=== PATIENT | male | born 1980 | race Caucasian/White ===

== ENCOUNTER 2021-07-29 19:26 | Emergency (ER) | payer OTHER, SELFPAY ==
--- NOTE | ~2021-07-29 | XR_ITS ---
EXAMINATION: XR CHEST CLINICAL INFORMATION: Chest pain, shortness of breath. COMPARISON: None TECHNIQUE: Frontal view of the chest was obtained. FINDINGS: The lungs are clear. The cardiomediastinal silhouette is normal in size. There is no pleural effusion or pneumothorax. No acute osseous abnormality. XR/XR chest 1V IMPRESSION: No acute cardiopulmonary findings.
--- NOTE | ~2021-07-29 | CT_ITS ---
EXAMINATION: CT ANGIOGRAM OF THE CHEST WITH AND WITHOUT CONTRAST (CT PULMONARY ANGIOGRAM FOR PE) CLINICAL INFORMATION: Reason for Exam chest pain, dizziness COMPARISON: None TECHNIQUE: Prior to contrast administration, noncontrast localization images were obtained. Subsequently, multidetector volumetric imaging was performed from the thoracic inlet to below the diaphragms following the administration of 65 mL Omnipaque 350 intravenous contrast. No contrast reaction reported Sagittal, coronal, and MIP oblique sagittal reformatted images were obtained on the CT workstation, uploaded to PACS, and reviewed. This CT examination was performed using dose optimization techniques as appropriate, variously including the following: *Automated exposure control *Adjustment of mA and/or kV according to patient size (this includes techniques or standardized protocols for targeted exams where dose is matched to indication/reason for exam; i.e. extremities or head) *Use of iterative reconstruction technique Total exam dose-length product 415 mGy-cm FINDINGS: QUALITY OF STUDY/CONTRAST BOLUS: Satisfactory. PULMONARY ARTERIES: No central or segmental pulmonary emboli. THORACIC AORTA: No aneurysm or dissection. LUNG: No focal consolidation, nodules or masses. The central airways are patent. Minimal linear opacities at the left lung base favor atelectasis. PLEURA: No pleural effusion or pneumothorax. MEDIASTINUM: Normal heart size. No pericardial effusion. No hilar or mediastinal lymphadenopathy. No evidence of septal bowing or right heart strain. CHEST WALL/AXILLA: No axillary or internal mammary lymphadenopathy. OSSEOUS STRUCTURES: No acute or suspicious osseous abnormality. UPPER ABDOMEN: Low-attenuation of the liver suggestive of hepatic steatosis. No acute abnormality of the visualized upper abdomen. No reflux of contrast into the hepatic veins to suggest elevated right heart pressures. CT/CT angio chest PE protocol IMPRESSION: No pulmonary embolism or other acute intrathoracic abnormality. VTE: negative
--- NOTE | 2021-07-29 19:32 | ECG_ITS ---
Test Reason : CP/SOB Blood Pressure : / mmHG Vent. Rate : 113 BPM Atrial Rate : 113 BPM P-R Int : 126 ms QRS Dur : 078 ms QT Int : 330 ms P-R-T Axes : 035 064 033 degrees QTc Int : 452 ms Sinus tachycardia Otherwise normal ECG No previous ECGs available Referred By: Generic ED Physician Electronically Signed By:Israel Treviño
[2021-07-29 19:38] VITALS: BP 150/98; PULSE 110; RESP 16; TEMP 36.6; O2SAT 98; BMI 31.9
[2021-07-29 23:24] LABS: MANUAL DIFF FLAG NO
[2021-07-29 23:25] LABS: Basophils Absolute Auto 0.1 X10*3/uL (0.0-0.2); Basophils Percent Auto 0.8 % (0-2); Eosinophils Absolute Auto 0.1 X10*3/uL (0.0-0.4); Hemoglobin 16.6 g/dl (14.0-18.0); Imm Gran Abs Auto 0.01 X10*3/uL (0.00-0.03); Imm Gran Pct Auto 0.1 % (0.0-0.4); Lymphocytes Absolute Auto 2.3 X10*3/uL (1.2-4.9); Lymphocytes Percent Auto 25.5 % (20-40); Mean Corpuscular HGB Conc 33.2 g/dl (31.0-36.0); Mean Corpuscular Hemoglobin 28.4 pg (27.0-33.0); Mean Corpuscular Volume 85.5 fL (80.0-98.0); Mean Platelet Volume 10.3 fL (9.4-12.4); Monocytes Absolute Auto 0.8 X10*3/uL (0.1-1.2); Monocytes Percent Auto 8.2 % (2-11); Neutrophils Absolute Auto 5.9 x10*3/uL (2.0-8.3); Neutrophils Percent Auto 64.4 % (45-73); Platelet Count 327 X10*3/uL (160-400); Red Blood Count 5.85 X10*6/uL (4.60-5.80); Red Cell Distribution Width 12.1 % (11.0-16.0); White Blood Count 9.2 X10*3/uL (4.8-10.8)
[2021-07-29 23:40] VITALS: BP 131/86; PULSE 95; RESP 20; TEMP 36.5; O2SAT 96
[2021-07-29 23:40] LABS: Anion Gap 13 (12-20); Blood Urea Nitrogen 14 mg/dL (9-16); Calcium 9.6 mg/dL (8.4-10.2); Carbon Dioxide 27 mmol/L (22-29); Chloride 100 mmol/L (96-108); Creatinine Clr Calc Pharmacy 102.4; Estimated Glomerular Filt Rate > 60; Glucose Random 189 mg/dL (60-115); Sodium 136 mmol/L (135-145)
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
[2021-07-29 23:47] LABS: Troponin-I High Sensitivity < 3.5 ng/L (<3.5-35.0)
[2021-07-30] VITALS: BP 156/97; PULSE 96; RESP 18; O2SAT 99
--- NOTE | 2021-07-30 01:00 | PC.NURSE ---
awake..alert..respirations easy..states 8/10 upper chest pain worse on inspiration..1st troponin (-)...atTES ALLERGIC TO SHELLFISH..DR LAZARO AWARE..FOR CT CHEST..NSR NO ECTOPY..TO CT SCAN
[2021-07-30] MEDS: iohexoL 350 MG/ML 100 ML INFUS..BTL 65 ML IV (01:15)
[2021-07-30] MEDS: LORazepam 1 MG TABLET PO (01:20)
[2021-07-30] MEDS: 0.9 % Sodium Chloride 1,000 ML 999 ML IV (01:23)
[2021-07-30 02:08] VITALS: BP 130/84; PULSE 84; RESP 17; O2SAT 98
[2021-07-30 02:32] LABS: Troponin-I High Sensitivity < 3.5 ng/L (<3.5-35.0)
== END 2021-07-30 03:00 | disposition home or self-care (01) ==
PROVIDERS: Emergency Provider Emergency Medicine; PCP Internal Medicine
DX: R07.2 Precordial pain (principal); R07.89 Other chest pain; R42 Dizziness and giddiness; R06.02 Shortness of breath; Z79.899 Other long term (current) drug therapy
CPT/HCPCS: 36415; 71045; 71275; 80048; 84484; 85025; 93005; 96360; 99284; Q9967

== ENCOUNTER 2021-09-13 17:14 | Inpatient (IN) | payer OTHER, SELFPAY ==
--- NOTE | ~2021-09-13 | CT_ITS ---
EXAMINATION: CT ABDOMEN AND PELVIS WITHOUT CONTRAST CLINICAL INFORMATION: Right lower quadrant and left lower quadrant pain and guarding. COMPARISON: CT abdomen and pelvis without contrast on 03/16/2019. TECHNIQUE: Multidetector volumetric imaging was performed from the superior aspect of the liver through the pubic symphysis. Sagittal and coronal reformatted images were obtained on the technologist's workstation. This CT examination was performed using dose optimization techniques as appropriate, variously including the following: *Automated exposure control *Adjustment of mA and/or kV according to patient size (this includes techniques or standardized protocols for targeted exams where dose is matched to indication/reason for exam; i.e. extremities or head) *Use of iterative reconstruction technique DLP: 583 mGy-cm FINDINGS: LUNG BASES: The visualized lung bases are unremarkable. LIVER, GALLBLADDER, AND BILIARY TREE: The liver is normal in size, shape, and attenuation. No focal hepatic lesion or biliary ductal dilatation is present. The gallbladder is unremarkable with no evidence of radiopaque gallstones, gallbladder wall thickening, or obvious pericholecystic inflammatory changes. PANCREAS: Unremarkable. SPLEEN: Unremarkable. ADRENAL GLANDS: Unremarkable. KIDNEYS AND URETERS: Unremarkable. BLADDER: Unremarkable. GASTROINTESTINAL TRACT: Decompressed stomach. Normal caliber loops of small bowel. There is sigmoid colonic wall thickening and pericolonic fat stranding in the left lower quadrant consistent with acute diverticulitis. No free fluid, free air or drainable fluid collections identified. ABDOMINAL WALL: No significant hernia is appreciated. LYMPH NODES: Normal. VASCULAR: Unremarkable. PELVIC VISCERA: Unremarkable. OSSEOUS STRUCTURES: Unremarkable. CT/CT abdomen pelvis wo con IMPRESSION: Acute, uncomplicated diverticulitis of the sigmoid colon. Fleischner guidelines were followed.
[2021-09-13 17:24] VITALS: BP 123/82; PULSE 120; RESP 17; TEMP 37; O2SAT 93; BMI 28.8
[2021-09-13 17:37] LABS: MANUAL DIFF FLAG NO
[2021-09-13 17:40] LABS: Basophils Absolute Auto 0.1 X10*3/uL (0.0-0.2); Basophils Percent Auto 0.5 % (0-2); Eosinophils Absolute Auto 0.1 X10*3/uL (0.0-0.4); Eosinophils Percent Auto 0.6 % (0-4); Hematocrit 51.6 % (42.0-52.0); Hemoglobin 17.2 g/dl (14.0-18.0); Imm Gran Abs Auto 0.06 X10*3/uL (0.00-0.03); Imm Gran Pct Auto 0.4 % (0.0-0.4); Lymphocytes Absolute Auto 2.4 X10*3/uL (1.2-4.9); Lymphocytes Percent Auto 16.7 % (20-40); Mean Corpuscular HGB Conc 33.3 g/dl (31.0-36.0); Mean Corpuscular Hemoglobin 28.3 pg (27.0-33.0); Mean Platelet Volume 10.4 fL (9.4-12.4); Monocytes Percent Auto 6.6 % (2-11); Neutrophils Absolute Auto 10.8 x10*3/uL (2.0-8.3); Neutrophils Percent Auto 75.2 % (45-73); Platelet Count 367 X10*3/uL (160-400); Red Blood Count 6.07 X10*6/uL (4.60-5.80); Red Cell Distribution Width 12.6 % (11.0-16.0); White Blood Count 14.4 X10*3/uL (4.8-10.8)
[2021-09-13 17:52] LABS: Alanine Aminotransferase 54 U/L (0-40); Albumin Level 4.3 g/dL (3.5-5.0); Alkaline Phosphatase 89 U/L (39-117); Anion Gap 12 (12-20); Aspartate Amino Transferase 20 U/L (5-37); Bilirubin Total 0.5 mg/dL (0.0-1.0); Blood Urea Nitrogen 20 mg/dL (9-16); Calcium 9.8 mg/dL (8.4-10.2); Carbon Dioxide 29 mmol/L (22-29); Chloride 102 mmol/L (96-108); Creatinine Clr Calc Pharmacy 97.6; Estimated Glomerular Filt Rate > 60; Glucose Random 117 mg/dL (60-115); Potassium 4.3 mmol/L (3.3-5.1); Sodium 139 mmol/L (135-145); Total Protein 7.2 g/dL (6.5-8.0)
--- NOTE | 2021-09-13 18:07 | ED.ABDPAIN ---
HPI - Abdominal Pain General Chief Complaint: Abdominal Pain Stated Complaint: abd pain Time Seen by Provider: 09/13/21 17:36 Source: patient Mode of arrival: ambulatory Limitations: no limitations History of Present Illness HPI narrative: 41-year-old male with a history of diverticulitis presents for 2 days of pain in his right lower quadrant with vomiting. Patient had diverticulitis 3 years ago and had an admission for diverticulitis. Patient had a hernia mesh repair 2016 for an umbilical hernia, no other surgeries. Patient is nauseous and has been vomiting. Patient states he had some light blood in the toilet bowl yesterday with a bowel movement. No fevers. States patient has pain in his right lower quadrant is 7/10 and radiates to his back. Denies urinary frequency or pain with urination. Related Data Home Medications Medication Instructions Recorded Confirmed atorvastatin 10 mg tablet 1 tab PO BEDTIME 09/13/21 dulaglutide 0.75 mg/0.5 mL 0.5 ml SUBCUT QWEEK 09/13/21 subcutaneous pen injector (Trulicity) empagliflozin 25 mg tablet 1 tab PO QAM 09/13/21 (Jardiance) lisinopril 10 mg tablet 1 tab PO DAILY 09/13/21 Allergies Allergy/AdvReac Type Severity Reaction Status Date / Time ciprofloxacin [From CIPRO] Allergy Intermediate HIVES, Verified 09/13/21 17:30 BREATHING Latex, Natural Rubber Allergy Mild NAUSEA & Verified 09/13/21 17:30 [LATEX, NATURAL RUBBER] VOMITING peanut [PEANUT] Allergy Mild NAUSEA & Verified 09/13/21 17:30 VOMITING nickel Allergy Hives Verified 09/13/21 17:30 shellfish derived Allergy Vomiting Verified 09/13/21 17:30 Review of Systems Constitutional: Denies body ache(s), Denies chills, Denies fatigue, Denies fever(s), Denies headache(s), Reports malaise and Denies weakness Eyes: Denies diplopia Denies vertigo, Denies dizziness, Denies otalgia, Denies headache(s), Denies mouth pain, Denies post nasal drip, Denies sinus pain, Denies sinus pressure, Denies sore throat and Denies throat swelling Cardiovascular: Denies chest pain, Denies syncope, Denies leg edema, Denies lightheadedness, Denies Loss of Consciousness, Denies palpitations and Denies dyspnea Respiratory: Denies chest congestion, Denies cough and Denies dyspnea Gastrointestinal: Reports abdominal pain, Denies melena, Reports hematochezia, Denies constipation, Denies diarrhea, Reports nausea and Reports vomiting Genitourinary: Reports no additional male genitourinary complaints Musculoskeletal: Reports no additional musculoskeletal complaints Denies confusion, Denies vertigo, Denies dizziness, Denies syncope, Denies headache(s) and Denies weakness Psychiatric: Denies anxiety, Denies confusion and Denies depression Endocrine: Denies fatigue and Denies palpitations Allergic/Immunologic: Denies throat swelling PMFSH Past Medical History Medical History Diabetes Hypertension Pulmonary hypertension Social History Social History Patient Tobacco Use Status: Never used Tobacco Advance Directives: No Advance Directives Information Provided: No Physical Exam ED Vital Signs: Vital Signs - 24 hr 09/13/21 17:24 09/13/21 18:52 Temperature 98.6 F Pulse Rate 120 H 116 H Respiratory Rate 17 20 Blood Pressure 123/82 141/79 H Pulse Oximetry 93 97 BMI result Body Mass Index 28.8 Const General: No confusion Nutritional Appearance: well nourished Orientation/consciousness: No confusion Limitations: no limitations HENMT Head: Yes normal to inspection, Yes normocephalic and Yes atraumatic Ears: hearing grossly normal bilaterally, external ears normal, TM's normal bilaterally and EAC's normal General nose exam: Normal external nose present Face and sinus: Yes normal facial exam and Yes sinuses nontender Mouth: Normal oral and palatal mucosa present Throat: Yes posterior oropharynx normal Eyes Conjunctivae: conjunctivae normal Pupils: Equal, round and reactive pupils present EOM: EOMs intact bilaterally Neck Neck: Yes full ROM, Yes no lymphadenopathy and Yes supple Resp Effort & Inspection: normal respiratory effort and able to speak in complete sentences Auscultation: clear to auscultation bilaterally, no crackles, no rales, no rhonchi and no wheezes Cardio Rate: regular rate Rhythm: regular rhythm Heart sounds: S1 normal heart sound present and S2 normal heart sound present GI Inspection: Yes normal to inspection Palpation (GI): Soft to palpation, Tenderness to palpation present (GI) in the LLQ and in the RLQ, Guarding due to palpation present (GI) in the LLQ and in the RLQ and not rigid Percussion: Yes normal to percussion Auscultation: normal bowel sounds General: Yes no CVA tenderness Male General Exam: Yes normal external exam Penis: normal penis and circumcised Meatus: meatus normal, no meatla discharge and No Blood at meatus present Scrotum: scrotum normal, no ecchymosis, not edematous and not erythematous Testes: Testes normal, testicular lie normal, no epididymal induration, no epidiymal tenderness, no testicular swelling and no testicular tenderness Back/Spine/Pelvis Back: no CVA tenderness Skin General skin exam: no rashes or lesions noted Neuro General: No confusion Cranial nerves: Yes Equal, round and reactive pupils present Extrem General: Yes normal to inspection and Yes full ROM Psych Appearance: grossly normal Affect: normal affect Attitude: cooperative Thought process: Normal thought process present Course Course Course Narrative: 41-year-old male presents with 2 days of nausea, vomiting, and right lower quadrant pain. Patient has a history of diverticulitis. On exam, patient is tachycardic in the 110s, has guarding and tenderness in his bilateral lower abdomen. Patient also reported some blood in the toilet bowl yesterday Urine shows glucosuria, fecal occult blood negative, lipase within normal limits, chemistries remarkable for an ALT of 54. Gave normal saline, morphine, Zofran. Patient is COVID negative. Reevaluation(s) Reevaluation #1: CT shows diverticulitis, patient is still tachycardic, patient has leukocytosis of 14.4. Sepsis suspected, got blood cultures, lactic, fluids, started antibiotics Hospitalist will admit as pt cannot tolerate oral Lactic not elevated; is 0.9 Time: 20:15 MDM - Abdominal Pain Lab Data Result diagrams: 09/13/21 17:33 09/13/21 17:33 Labs: Lab Results 09/13/21 09/13/21 09/13/21 Range/Units 17:33 17:33 18:34 WBC 14.4 H (4.8-10.8) X10*3/uL RBC 6.07 H (4.60-5.80) X10*6/uL Hgb 17.2 (14.0-18.0) g/dl Hct 51.6 (42.0-52.0) % MCV 85.0 (80.0-98.0) fL MCH 28.3 (27.0-33.0) pg MCHC 33.3 (31.0-36.0) g/dl RDW 12.6 (11.0-16.0) % Plt Count 367 (160-400) X10*3/uL MPV 10.4 (9.4-12.4) fL Immature Gran % (Auto) 0.4 (0.0-0.4) % Neut % (Auto) 75.2 H (45-73) % Lymph % (Auto) 16.7 L (20-40) % [place] % (Auto) 6.6 (2-11) % Eos % (Auto) 0.6 (0-4) % Baso % (Auto) 0.5 (0-2) % Lymph # (Auto) 2.4 (1.2-4.9) X10*3/uL [place] # (Auto) 1.0 (0.1-1.2) X10*3/uL Eos # (Auto) 0.1 (0.0-0.4) X10*3/uL Baso # (Auto) 0.1 (0.0-0.2) X10*3/uL Abs Immat Gran (auto) 0.06 H (0.00-0.03) X10*3/uL Absolute Neuts (auto) 10.8 H (2.0-8.3) x10*3/uL Absolute Nucleated RBC 0.000 (0.0-0.012) X10*3/uL Nucleated RBC % (auto) 0.0 (0.0-0.2) /100WBC Sodium 139 (135-145) mmol/L Potassium 4.3 (3.3-5.1) mmol/L Chloride 102 (96-108) mmol/L Carbon Dioxide 29 (22-29) mmol/L Anion Gap 12 (12-20) BUN 20 H (9-16) mg/dL Creatinine 0.92 (0.5-1.4) mg/dL Estim Creat Clear Calc 97.6 Estimated GFR > 60 Random Glucose 117 H D (60-115) mg/dL Lactic Acid (0.5-2.0) mmol/L Calcium 9.8 (8.4-10.2) mg/dL Total Bilirubin 0.5 (0.0-1.0) mg/dL AST 20 (5-37) U/L ALT 54 H (0-40) U/L Alkaline Phosphatase 89 (39-117) U/L Total Protein 7.2 (6.5-8.0) g/dL Albumin 4.3 (3.5-5.0) g/dL Lipase 13 (8-78) U/L Urine Color Urine Appearance Urine pH (5.0-8.0) Ur Specific [place] (1.005-1.025) Urine Protein (NEG-TRACE) MG/DL Urine Glucose (UA) (NEG) MG/DL Urine Ketones (NEG) MG/DL Urine Blood (NEG) Urine Nitrite (NEG) Ur Leukocyte Esterase (NEG) Urine RBC (0) /HPF Urine WBC (0-4) /HPF Ur Squamous Epith Cells /LPF Amorphous Sediment /LPF Urine Bacteria /LPF Stool Occult Blood (NEGATIVE) COVID-19 (DENISE) Negative (Negative) COVID-19 Clin Com See Note 09/13/21 09/13/21 09/13/21 Range/Units 18:34 18:34 20:29 WBC (4.8-10.8) X10*3/uL RBC (4.60-5.80) X10*6/uL Hgb (14.0-18.0) g/dl Hct (42.0-52.0) % MCV (80.0-98.0) fL MCH (27.0-33.0) pg MCHC (31.0-36.0) g/dl RDW (11.0-16.0) % Plt Count (160-400) X10*3/uL MPV (9.4-12.4) fL Immature Gran % (Auto) (0.0-0.4) % Neut % (Auto) (45-73) % Lymph % (Auto) (20-40) % [place] % (Auto) (2-11) % Eos % (Auto) (0-4) % Baso % (Auto) (0-2) % Lymph # (Auto) (1.2-4.9) X10*3/uL [place] # (Auto) (0.1-1.2) X10*3/uL Eos # (Auto) (0.0-0.4) X10*3/uL Baso # (Auto) (0.0-0.2) X10*3/uL Abs Immat Gran (auto) (0.00-0.03) X10*3/uL Absolute Neuts (auto) (2.0-8.3) x10*3/uL Absolute Nucleated RBC (0.0-0.012) X10*3/uL Nucleated RBC % (auto) (0.0-0.2) /100WBC Sodium (135-145) mmol/L Potassium (3.3-5.1) mmol/L Chloride (96-108) mmol/L Carbon Dioxide (22-29) mmol/L Anion Gap (12-20) BUN (9-16) mg/dL Creatinine (0.5-1.4) mg/dL Estim Creat Clear Calc Estimated GFR Random Glucose (60-115) mg/dL Lactic Acid 0.9 (0.5-2.0) mmol/L Calcium (8.4-10.2) mg/dL Total Bilirubin (0.0-1.0) mg/dL AST (5-37) U/L ALT (0-40) U/L Alkaline Phosphatase (39-117) U/L Total Protein (6.5-8.0) g/dL Albumin (3.5-5.0) g/dL Lipase (8-78) U/L Urine Color YELLOW Urine Appearance HAZY Urine pH 7.5 (5.0-8.0) Ur Specific [place] 1.010 (1.005-1.025) Urine Protein NEG (NEG-TRACE) MG/DL Urine Glucose (UA) >=1000 H (NEG) MG/DL Urine Ketones NEG (NEG) MG/DL Urine Blood NEG (NEG) Urine Nitrite NEG (NEG) Ur Leukocyte Esterase NEG (NEG) Urine RBC 0 (0) /HPF Urine WBC 0 (0-4) /HPF Ur Squamous Epith Cells NONE /LPF Amorphous Sediment 2+ /LPF Urine Bacteria 1+ /LPF Stool Occult Blood NEGATIVE (NEGATIVE) COVID-19 (DENISE) (Negative) COVID-19 Clin Com Discharge Plan Discharge Clinical Impression: Diverticulitis Patient Disposition: Admitted As Inpatient
[2021-09-13 18:32] LABS: Lipase 13 U/L (8-78)
[2021-09-13 18:43] LABS: Appearance Urine HAZY; Color Urine YELLOW; Glucose Urine UA >=1000 MG/DL (NEG); Leukocyte Esterase Urine NEG (NEG); Nitrite Urine NEG (NEG); OBS Int Ctl Valid YES; OBS1 NEGATIVE (NEGATIVE); PH 7.5 (5.0-8.0); Urine Blood NEG (NEG); Urine Ketones NEG (NEG); Urine Protein NEG (NEG-TRACE)
[2021-09-13] MEDS: 0.9 % Sodium Chloride 1,000 ML 999 ML IV (18:46)
[2021-09-13] MEDS: Morphine Sulfate 4 MG/ML CARTRIDGE IVPUSH ×2 (18:48→22:15)
[2021-09-13] MEDS: ondansetron HCL 4 MG/2 ML VIAL IVPUSH (18:48)
[2021-09-13 18:49] LABS: Bacteria Urine 1+ /LPF; RBC Urine 0 /HPF (0); WBC Urine 0 /HPF (0-4)
[2021-09-13 18:50] LABS: Amorphous Sediment Urine 2+ /LPF
[2021-09-13 18:52] VITALS: BP 141/79; PULSE 116; RESP 20; O2SAT 97
[2021-09-13 19:01] LABS: COVID-19 Test Negative (Negative)
[2021-09-13] MEDS: cefTRIAXone sodium 2 GM in 0.9 % Sodium Chloride 50 ML IV (20:39)
[2021-09-13 20:51] LABS: Lactic Acid 0.9 mmol/L (0.5-2.0)
[2021-09-13] MEDS: metroNIDAZOLE/NS 500 MG/100 ML PIGGYBACK 100 MG IV (21:28)
--- NOTE | 2021-09-13 21:31 | PHA.MEDREC ---
Pharmacy Consult ? Medication Reconciliation Pharmacy has completed the medication reconciliation. No remarkable issues. Jennifer Goodwin, NadegeD
--- NOTE | 2021-09-13 21:56 | PM.IMHP ---
History of Present Illness Date of Service: 09/13/21 Chief Complaint: abd pain 41-year-old male with past medical history of hypertension, diabetes, SHARON, non fatty liver disease, presents to the hospital with complaints of abdominal pain. Patient reports that the abdominal pain started the day prior, associated with nausea vomiting, constipation, the pain is 10/10, radiating across the abdomen, alleviated with pain medications given in the ED. patient denies any chest pain, no shortness of breath, no urinary symptoms and no lower extremity edema. No headache or change in vision. On arrival to the ED patient hemodynamically stable with no significant abnormal vitals Labs are significant for WBC count of 14.4, otherwise unremarkable, UA negative, CT abdomen shows uncomplicated diverticulitis S patient has significant nausea vomiting, and does not tolerate p.o. antibiotics will be admitted for IV antibiotics and further management Review of Systems Review of Systems: Yes all other systems are reviewed and are negative [facility] Medical History Diabetes Hypertension Pulmonary hypertension Social History Patient Tobacco Use Status: Never used Tobacco Advance Directives: No Advance Directives Information Provided: No service: No Current occupational status: employed Meds Allergies Allergy/AdvReac Type Severity Reaction Status Date / Time ciprofloxacin [From CIPRO] Allergy Intermediate HIVES, Verified 09/13/21 17:30 BREATHING Latex, Natural Rubber Allergy Mild NAUSEA & Verified 09/13/21 17:30 [LATEX, NATURAL RUBBER] VOMITING peanut [PEANUT] Allergy Mild NAUSEA & Verified 09/13/21 17:30 VOMITING nickel Allergy Hives Verified 09/13/21 17:30 shellfish derived Allergy Vomiting Verified 09/13/21 17:30 Home Medications Medication Instructions Recorded Confirmed Last Taken Type ascorbic acid (vitamin C) 500 mg 500 mg PO DAILY 09/13/21 09/13/21 09/13/21 History chewable tablet aspirin 81 mg tablet,delayed 81 mg PO DAILY 09/13/21 09/13/21 09/13/21 History release atorvastatin 10 mg tablet 1 tab PO BEDTIME 09/13/21 09/13/21 09/12/21 History dulaglutide 0.75 mg/0.5 mL 0.5 ml SUBCUT AQUINO 09/13/21 09/13/21 09/09/21 History subcutaneous pen injector (Trulicity) empagliflozin 25 mg tablet 1 tab PO DAILY 09/13/21 09/13/21 09/13/21 History (Jardiance) lisinopril 10 mg tablet 1 tab PO DAILY 09/13/21 09/13/21 09/13/21 History multivitamin 1 tab PO DAILY 09/13/21 09/13/21 09/13/21 History Physical Exam Vital Signs and Narrative: Vital Signs: Last Vital Signs Temp 98.6 F 09/13/21 17:24 Pulse 116 H 09/13/21 18:52 Resp 20 09/13/21 18:52 BP 141/79 H 09/13/21 18:52 Pulse Ox 97 09/13/21 18:52 BMI result Body Mass Index 28.8 Const: General: cooperative and no acute distress Orientation/consciousness: patient oriented x3 Eyes: General: appearance normal, both eyes and all related structures Pupils: Equal, round and reactive pupils present Resp: Effort & Inspection: normal respiratory effort Auscultation: clear to auscultation bilaterally Cardio: Rate: regular rate Rhythm: regular rhythm GI: Palpation (GI): Soft to palpation Auscultation: normal bowel sounds Skin: General skin exam: no rashes or lesions noted Neuro: General: patient oriented x3 Cranial nerves: Yes Equal, round and reactive pupils present Cognition (Neuro): normal cognition Extrem: General: Yes normal to inspection and Yes no pedal edema Results Labs CBC and Chem 7: 09/14/21 06:10 09/13/21 17:33 Labs: Laboratory Results - last 24 hr 09/13/21 09/13/21 09/13/21 17:33 17:33 18:34 MCV 85.0 MCH 28.3 MCHC 33.3 RDW 12.6 Plt Count 367 MPV 10.4 Immature Gran % (Auto) 0.4 Neut % (Auto) 75.2 H Lymph % (Auto) 16.7 L [place] % (Auto) 6.6 Eos % (Auto) 0.6 Baso % (Auto) 0.5 Lymph # (Auto) 2.4 [place] # (Auto) 1.0 Eos # (Auto) 0.1 Baso # (Auto) 0.1 Abs Immat Gran (auto) 0.06 H Absolute Neuts (auto) 10.8 H Absolute Nucleated RBC 0.000 Nucleated RBC % (auto) 0.0 Anion Gap 12 Estim Creat Clear Calc 97.6 Estimated GFR > 60 Random Glucose 117 H D Lactic Acid Calcium 9.8 Total Bilirubin 0.5 AST 20 ALT 54 H Alkaline Phosphatase 89 Total Protein 7.2 Albumin 4.3 Lipase 13 Urine Color Urine Appearance Urine pH Ur Specific [place] Urine Protein Urine Glucose (UA) Urine Ketones Urine Blood Urine Nitrite Ur Leukocyte Esterase Urine RBC Urine WBC Ur Squamous Epith Cells Amorphous Sediment Urine Bacteria Stool Occult Blood COVID-19 (DENISE) Negative COVID-19 Clin Com See Note 09/13/21 09/13/21 09/13/21 18:34 18:34 20:29 MCV MCH MCHC RDW Plt Count MPV Immature Gran % (Auto) Neut % (Auto) Lymph % (Auto) [place] % (Auto) Eos % (Auto) Baso % (Auto) Lymph # (Auto) [place] # (Auto) Eos # (Auto) Baso # (Auto) Abs Immat Gran (auto) Absolute Neuts (auto) Absolute Nucleated RBC Nucleated RBC % (auto) Anion Gap Estim Creat Clear Calc Estimated GFR Random Glucose Lactic Acid 0.9 Calcium Total Bilirubin AST ALT Alkaline Phosphatase Total Protein Albumin Lipase Urine Color YELLOW Urine Appearance HAZY Urine pH 7.5 Ur Specific [place] 1.010 Urine Protein NEG Urine Glucose (UA) >=1000 H Urine Ketones NEG Urine Blood NEG Urine Nitrite NEG Ur Leukocyte Esterase NEG Urine RBC 0 Urine WBC 0 Ur Squamous Epith Cells NONE Amorphous Sediment 2+ Urine Bacteria 1+ Stool Occult Blood NEGATIVE COVID-19 (DENISE) COVID-19 Clin Com Imaging Radiologist's Impressions: Impressions Abdomen/Pelvis CT 09/13/21 18:28 IMPRESSION: Acute, uncomplicated diverticulitis of the sigmoid colon. Fleischner guidelines were followed. Assessment and Plan (1) Diverticulitis: Status: Acute (2) Intractable nausea and vomiting: Status: Acute Plan 41-year-old male with past medical history of diabetes and hypertension presents to the hospital with abdominal pain found to have acute diverticulitis # ACUTE DIVERTICULITIS - uncomplicated - will treat with IV antibiotics - monitor improvement - pain control - IV fluids - NPO # intractable nausea vomiting - likely secondary to above - will treat with supportive measures, antiemetics # Diabetes - hold oral antihyperglycemics - start low-dose sliding scale insulin - diabetic diet # hypertension - continue home antihypertensive DVT prophylaxis: Lovenox Quality Stroke Does the patient have a stroke diagnosis?: No VTE Prior VTE?: No VTE Risk Level:: Medical - moderate - high VTE Device Contraindication: N/A - Device Ordered VTE Drug Contraindication: Treatment Not Indicated
--- NOTE | 2021-09-13 22:36 | MHC.CM.PN ---
CM met with admitted patient with bed assignment pending. HCP reviewed, completed, and signed. HCP/brother Clifford Hall ([phone]). Copies given. Uploaded into [employer] and [facility] [employer]. Fully vax x2/Boosted x2/[employer]. Has DM testing supplies, no services. Lives with . Employed. D/C plan: Home w/o services. to transport home. CM to follow for d/c needs.
--- NOTE | 2021-09-13 23:20 | PC.NURSE ---
Took report from Eladia to assume care of Pt. Pt sleeping, chest rise and fall observed. Call light in reach. This RN continues to monitor.
[2021-09-14] VITALS (8 sets, daily range): BP systolic 97–132; BP diastolic 57–77; PULSE 91–97; RESP 12–20; TEMP 36.5–37.6; O2SAT 94–98
[2021-09-14] MEDS: ondansetron HCL 4 MG/2 ML VIAL IVPUSH (03:42)
[2021-09-14] MEDS: Morphine Sulfate 4 MG/ML CARTRIDGE IVPUSH ×2 (03:42→07:40)
[2021-09-14] MEDS: metroNIDAZOLE 500 MG TABLET PO ×3 (05:55→19:32)
[2021-09-14 06:20] LABS: MANUAL DIFF FLAG NO
[2021-09-14 06:24] LABS: Basophils Absolute Auto 0.1 X10*3/uL (0.0-0.2); Basophils Percent Auto 0.5 % (0-2); Eosinophils Percent Auto 0.4 % (0-4); Hematocrit 45.3 % (42.0-52.0); Hemoglobin 14.6 g/dl (14.0-18.0); Imm Gran Abs Auto 0.04 X10*3/uL (0.00-0.03); Imm Gran Pct Auto 0.4 % (0.0-0.4); Lymphocytes Absolute Auto 1.6 X10*3/uL (1.2-4.9); Lymphocytes Percent Auto 16.4 % (20-40); Mean Corpuscular HGB Conc 32.2 g/dl (31.0-36.0); Mean Corpuscular Hemoglobin 28.6 pg (27.0-33.0); Mean Corpuscular Volume 88.6 fL (80.0-98.0); Mean Platelet Volume 10.5 fL (9.4-12.4); Monocytes Absolute Auto 0.8 X10*3/uL (0.1-1.2); Monocytes Percent Auto 8.7 % (2-11); Neutrophils Absolute Auto 7.1 x10*3/uL (2.0-8.3); Neutrophils Percent Auto 73.6 % (45-73); Platelet Count 275 X10*3/uL (160-400); Red Blood Count 5.11 X10*6/uL (4.60-5.80); Red Cell Distribution Width 12.6 % (11.0-16.0); White Blood Count 9.6 X10*3/uL (4.8-10.8)
[2021-09-14 06:40] LABS: Anion Gap 11 (12-20); Blood Urea Nitrogen 14 mg/dL (9-16); Carbon Dioxide 24 mmol/L (22-29); Chloride 106 mmol/L (96-108); Creatinine Clr Calc Pharmacy 113.7; Estimated Glomerular Filt Rate > 60; Glucose Random 102 mg/dL (60-115); Potassium 4.5 mmol/L (3.3-5.1); Sodium 136 mmol/L (135-145)
[2021-09-14 06:55] LABS: Calcium 8.5 mg/dL (8.4-10.2)
[2021-09-14 07:34] LABS: Glucose, Whole Blood 79 mg/dL (60-115)
[2021-09-14] MEDS: 0.9 % Sodium Chloride Flush 3 ML SYRINGE IVFLUSH (07:40)
[2021-09-14] MEDS: Lactated Ringers 1,000 ML 80 ML IVCONT ×2 (07:42→19:40)
--- NOTE | 2021-09-14 08:51 | HO.PM.IMPN ---
Subjective Subjective Date of Service: 09/14/21 Interval History: abd pain Review of Systems Patient still has abdominal pain significant. has nausea , no vomiting, no fevers Physical Exam Vital Signs: Vital Signs: Last Vital Signs Temp 98.3 F 09/14/21 07:16 Pulse 95 09/14/21 07:16 Resp 12 09/14/21 07:16 BP 103/57 L 09/14/21 07:16 Pulse Ox 95 09/14/21 07:16 BMI result Body Mass Index 28.8 Appearance: Alert.? Oriented X3.? not in distress.?. cvs: rrr, [id number] , no murmur res: clear to auscultation ,no rhonchii or wheezing abd: no rebound or guarding ,llq pain, bs present. ext pulses present , no cyanosis . neuro: axo3 , nonfocal. Objective Data Active Medications Acetaminophen (Acetaminophen 325 Mg Tablet) 650 mg PO Q6H PRN PRN Reason: Pain, Mild (Pain Scale 1-3) Aspirin (Aspirin Enteric Coated 81 Mg Tablet.) 81 mg PO DAILY [facility] Atorvastatin Calcium (Atorvastatin Calcium 10 Mg Tablet) 10 mg PO BEDTIME [facility] Dextrose (Dextrose 50 % 25 Gm/50 Ml Syringe) 25 gm IVPUSH Q15M PRN; Protocol PRN Reason: per Hypoglycemia Standing Ord. Glucose (Glucose Gel 15 Gm Gel..Gram.) 15 gm PO Q15M PRN; Protocol PRN Reason: per Hypoglycemia Standing Ord. Ceftriaxone Sodium 1 gm/ (Sodium Chloride) 50 mls @ 100 mls/hr IV Q24H [facility] Lactated Ringer's (Lr) 1,000 mls @ 80 mls/hr IVCONT .[id number] [facility] Last Admin: 09/14/21 07:42 Dose: 80 mls/hr Documented by: MORA Insulin Human Lispro (Insulin Lispro 100 Unit/Ml 3 Ml Vial) 0 unit SUBCUT QIDACHS [facility]; Protocol Last Admin: 09/14/21 07:28 Dose: Not Given Documented by: MORA Non-Admin Reason: No Insulin Coverage Lisinopril (Lisinopril 10 Mg Tablet) 10 mg PO DAILY [facility]; Protocol Metronidazole (Metronidazole 500 Mg Tablet) 500 mg PO Q8H [facility] Last Admin: 09/14/21 05:55 Dose: 500 mg Documented by: GILDA Morphine Sulfate (Morphine Sulfate 4 Mg/Ml Cartridge) 4 mg IVPUSH Q4H PRN; Protocol PRN Reason: Pain, Severe (Pain Scale 7-10) Last Admin: 09/14/21 07:40 Dose: 4 mg Documented by: MORA Multivitamins/Vitamin C (Multivitamin Tablet) 1 tab PO DAILY [facility] Ondansetron HCl (Ondansetron Hcl 4 Mg/2 Ml Vial) 4 mg IVPUSH Q8H PRN PRN Reason: Nausea and Vomiting Last Admin: 09/14/21 03:42 Dose: 4 mg Documented by: GILDA Sodium Chloride (0.9 % Sodium Chloride Flush 3 Ml Syringe) 3 ml IVFLUSH QSHIFT [facility] Last Admin: 09/14/21 07:40 Dose: 3 ml Documented by: MORA Labs CBC & Chem 7: 09/14/21 06:10 09/14/21 06:10 Labs: Laboratory Results - last 24 hr 09/13/21 09/13/21 09/13/21 17:33 17:33 18:34 MCV 85.0 MCH 28.3 MCHC 33.3 RDW 12.6 Plt Count 367 MPV 10.4 Immature Gran % (Auto) 0.4 Neut % (Auto) 75.2 H Lymph % (Auto) 16.7 L [place] % (Auto) 6.6 Eos % (Auto) 0.6 Baso % (Auto) 0.5 Lymph # (Auto) 2.4 [place] # (Auto) 1.0 Eos # (Auto) 0.1 Baso # (Auto) 0.1 Abs Immat Gran (auto) 0.06 H Absolute Neuts (auto) 10.8 H Absolute Nucleated RBC 0.000 Nucleated RBC % (auto) 0.0 Anion Gap 12 Estim Creat Clear Calc 97.6 Estimated GFR > 60 POC Glucose Random Glucose 117 H D Lactic Acid Calcium 9.8 Total Bilirubin 0.5 AST 20 ALT 54 H Alkaline Phosphatase 89 Total Protein 7.2 Albumin 4.3 Lipase 13 Urine Color Urine Appearance Urine pH Ur Specific [place] Urine Protein Urine Glucose (UA) Urine Ketones Urine Blood Urine Nitrite Ur Leukocyte Esterase Urine RBC Urine WBC Ur Squamous Epith Cells Amorphous Sediment Urine Bacteria Stool Occult Blood COVID-19 (DENISE) Negative COVID-19 Clin Com See Note 09/13/21 09/13/21 09/13/21 18:34 18:34 20:29 MCV MCH MCHC RDW Plt Count MPV Immature Gran % (Auto) Neut % (Auto) Lymph % (Auto) [place] % (Auto) Eos % (Auto) Baso % (Auto) Lymph # (Auto) [place] # (Auto) Eos # (Auto) Baso # (Auto) Abs Immat Gran (auto) Absolute Neuts (auto) Absolute Nucleated RBC Nucleated RBC % (auto) Anion Gap Estim Creat Clear Calc Estimated GFR POC Glucose Random Glucose Lactic Acid 0.9 Calcium Total Bilirubin AST ALT Alkaline Phosphatase Total Protein Albumin Lipase Urine Color YELLOW Urine Appearance HAZY Urine pH 7.5 Ur Specific [place] 1.010 Urine Protein NEG Urine Glucose (UA) >=1000 H Urine Ketones NEG Urine Blood NEG Urine Nitrite NEG Ur Leukocyte Esterase NEG Urine RBC 0 Urine WBC 0 Ur Squamous Epith Cells NONE Amorphous Sediment 2+ Urine Bacteria 1+ Stool Occult Blood NEGATIVE COVID-19 (DENISE) COVID-19 Clin Com 09/14/21 09/14/21 09/14/21 06:10 06:10 07:26 MCV 88.6 MCH 28.6 MCHC 32.2 RDW 12.6 Plt Count 275 D MPV 10.5 Immature Gran % (Auto) 0.4 Neut % (Auto) 73.6 H Lymph % (Auto) 16.4 L [place] % (Auto) 8.7 Eos % (Auto) 0.4 Baso % (Auto) 0.5 Lymph # (Auto) 1.6 [place] # (Auto) 0.8 Eos # (Auto) 0.0 Baso # (Auto) 0.1 Abs Immat Gran (auto) 0.04 H Absolute Neuts (auto) 7.1 Absolute Nucleated RBC 0.000 Nucleated RBC % (auto) 0.0 Anion Gap 11 L Estim Creat Clear Calc 113.7 Estimated GFR > 60 POC Glucose 79 Random Glucose 102 Lactic Acid Calcium 8.5 D Total Bilirubin AST ALT Alkaline Phosphatase Total Protein Albumin Lipase Urine Color Urine Appearance Urine pH Ur Specific [place] Urine Protein Urine Glucose (UA) Urine Ketones Urine Blood Urine Nitrite Ur Leukocyte Esterase Urine RBC Urine WBC Ur Squamous Epith Cells Amorphous Sediment Urine Bacteria Stool Occult Blood COVID-19 (DENISE) COVID-19 Clin Com Assessment and Plan (1) Intractable nausea and vomiting: Status: Acute (2) Diverticulitis: Status: Acute Plan 41-year-old male with past medical history of diabetes and hypertension presents to the hospital with abdominal pain found to have acute diverticulitis Acute Diverticulitis - uncomplicated - will treat with IV antibiotics - monitor improvement IV fluids,clear liquid diet,pain control intractable nausea vomiting improving - will treat with supportive measures, antiemetics ? Diabetes: 80-110 - hold oral antihyperglycemics - start low-dose sliding scale insulin - diabetic diet hypertension:blood pressure stable hold antihypertensive DVT prophylaxis:? Lovenox inpatient need : for IV antibiotics and pain management for diverticulitis Quality Stroke Does the patient have a stroke diagnosis?: No VTE Prior VTE?: No VTE Risk Level:: Medical - moderate - high VTE Device Contraindication: N/A - Device Ordered VTE Drug Contraindication: Treatment Not Indicated
[2021-09-14] MEDS: lisinopriL 10 MG TABLET PO (10:06)
[2021-09-14] MEDS: Multivitamin TABLET 1 TAB PO (10:07)
[2021-09-14] MEDS: Aspirin Enteric Coated 81 MG TABLET.DR PO (10:07)
[2021-09-14 12:20] LABS: Glucose, Whole Blood 71 mg/dL (60-115)
--- NOTE | 2021-09-14 13:49 | P.CONGS_ITS ---
History of Present Illness Consult details Consult date: 09/14/21 <Radha Claire PA-C - Last Filed: 09/14/21 14:30> Reason for consult: other (recurrent diverticulitis) <Radha Claire PA-C - Last Filed: 09/14/21 14:30> Requesting physician: Alonzo Booth <Radha Claire PA-C - Last Filed: 09/14/21 14:30> Narrative: Mr. Hall is a 41 year old male with PMH significant for diabetes mellitus, hypertension, hyperlipidemia, diverticulitis who presented to the ED with lower abdominal pain, nausea and vomiting. The patient has a history of diverticulitis with his first episode in 2019 and reports he has had several episodes every year since. He usually treats himself by starting a clear liquid diet for a couple of days and if the pain does not improve, he sees his PCP and is prescribed PO antibiotics. He has only required admission once (2018) for IV antibiotics. He states he had a colonoscopy following this with Dr. Mart and was noted to have diverticulosis and benign polyps which were removed, however there are no records of this in the EMR. During this current episode, he reports that the pain actually began 2 weeks ago. It started in the RLQ, as he states all his diverticulitis episodes normally do, and saw another doctor in his PCPs office. The provider was concerned for appendicitis but he did not go for any imaging at that time and was not prescribed any antibiotics. He put himself on a liquid diet and the pain initially improved, however the pain recurred three days ago and spread to the LLQ. It was associated with nausea and vomiting and constipation. He was unable to keep any PO intake down and therefore presented to the ED for evaluation. Work up included a CT scan of the abdomen/pelvis which showed sigmoid colonic wall thickening and pericolonic fat stranding in the left lower quadrant. No free fluid or abscess appreciated. CBC, BMP, LFTs were obtained which were significant for a leukocytosis of 14.4 down to 9.6 today and a mildly elevated BUN at 20. He was admitted by the hospitalist service for treatment of the sigmoid diverticulitis and started on IV rocephin and flagyl. He reports feeling improved today with less pain and has been advanced to clear liquids this morning which he is tolerating. <Radha Claire PA-C - Last Filed: 09/14/21 14:30> Review of Systems Constitutional: Constitutional: Denies chills, Denies fever(s) and Denies malaise <FORTUNATO Lynn Last Filed: 09/14/21 14:30> Eyes: Eyes: Denies blurry vision and Denies change in vision <Radha Claire PA-C - Last Filed: 09/14/21 14:30> ENT: Denies dizziness <FORTUNATO Lynn Last Filed: 09/14/21 14:30> Cardiovascular: Cardiovascular: Denies chest pain and Denies dyspnea <Radha Claire PA-C - Last Filed: 09/14/21 14:30> Respiratory: Respiratory: Denies cough and Denies dyspnea <FORTUNATO Lynn Last Filed: 09/14/21 14:30> Gastrointestinal: Gastrointestinal: Reports as per HPI and Denies change in bowel habits <Radha Claire PA-C - Last Filed: 09/14/21 14:30> Genitourinary: Genitourinary: Denies hematuria and Denies dysuria <Radha Claire PA-C - Last Filed: 09/14/21 14:30> Integumentary/Breasts: Skin/Breast: Denies lesions and Denies rash <FORTUNATO Lynn Last Filed: 09/14/21 14:30> Neurologic: Denies dizziness and Denies focal weakness <FORTUNATO Lynn Last Filed: 09/14/21 14:30> PMF Past Medical History Medical History: Medical History (Updated 09/14/21 @ 06:41 by Roman Leon MD) Diabetes Hypertension Pulmonary hypertension <Radha Claire PA-C - Last Filed: 09/14/21 14:30> Surgical History Surgical History: Surgical History (Updated 09/14/21 @ 14:15 by Radha Claire PA-C) H/O umbilical hernia repair History of orchiectomy, unilateral <FORTUNATO Lynn Last Filed: 09/14/21 14:30> Social History Social History: Social History Household Members: Spouse Housing: House Do you presently have visiting nurse or other home services: No Patient Tobacco Use Status: Never used Tobacco Substance Use Type: Marijuana service: No Current occupational status: employed <Radha Claire PA-C - Last Filed: 09/14/21 14:30> Meds Allergies/Adverse reactions: Allergies Allergy/AdvReac Type Severity Reaction Status Date / Time ciprofloxacin [From CIPRO] Allergy Intermediate HIVES, Verified 09/13/21 17:30 BREATHING Latex, Natural Rubber Allergy Mild NAUSEA & Verified 09/13/21 17:30 [LATEX, NATURAL RUBBER] VOMITING peanut [PEANUT] Allergy Mild NAUSEA & Verified 09/13/21 17:30 VOMITING nickel Allergy Hives Verified 09/13/21 17:30 shellfish derived Allergy Vomiting Verified 09/13/21 17:30 <FORTUNATO Lynn Last Filed: 09/14/21 14:30> Active Medications: Current Medications Acetaminophen (Acetaminophen 325 Mg Tablet) 650 mg PO Q6H PRN PRN Reason: Pain, Mild (Pain Scale 1-3) Aspirin (Aspirin Enteric Coated 81 Mg Tablet.) 81 mg PO DAILY [facility] Last Admin: 09/14/21 10:07 Dose: 81 mg Documented by: Atorvastatin Calcium (Atorvastatin Calcium 10 Mg Tablet) 10 mg PO BEDTIME [facility] Dextrose (Dextrose 50 % 25 Gm/50 Ml Syringe) 25 gm IVPUSH Q15M PRN; Protocol PRN Reason: per Hypoglycemia Standing Ord. Glucose (Glucose Gel 15 Gm Gel..Gram.) 15 gm PO Q15M PRN; Protocol PRN Reason: per Hypoglycemia Standing Ord. Ceftriaxone Sodium 1 gm/ (Sodium Chloride) 50 mls @ 100 mls/hr IV Q24H [facility] Lactated Ringer's (Lr) 1,000 mls @ 80 mls/hr IVCONT .[id number] [facility] Last Admin: 09/14/21 07:42 Dose: 80 mls/hr Documented by: Insulin Human Lispro (Insulin Lispro 100 Unit/Ml 3 Ml Vial) 0 unit SUBCUT QIDACHS [facility]; Protocol Last Admin: 09/14/21 12:23 Dose: Not Given Documented by: Lisinopril (Lisinopril 10 Mg Tablet) 10 mg PO DAILY [facility]; Protocol Last Admin: 09/14/21 10:06 Dose: 10 mg Documented by: Metronidazole (Metronidazole 500 Mg Tablet) 500 mg PO Q8H [facility] Last Admin: 09/14/21 05:55 Dose: 500 mg Documented by: Morphine Sulfate (Morphine Sulfate 4 Mg/Ml Cartridge) 4 mg IVPUSH Q4H PRN; Protocol PRN Reason: Pain, Severe (Pain Scale 7-10) Last Admin: 09/14/21 07:40 Dose: 4 mg Documented by: Multivitamins/Vitamin C (Multivitamin Tablet) 1 tab PO DAILY [facility] Last Admin: 09/14/21 10:07 Dose: 1 tab Documented by: Ondansetron HCl (Ondansetron Hcl 4 Mg/2 Ml Vial) 4 mg IVPUSH Q8H PRN PRN Reason: Nausea and Vomiting Last Admin: 09/14/21 03:42 Dose: 4 mg Documented by: Sodium Chloride (0.9 % Sodium Chloride Flush 3 Ml Syringe) [facility] Last Admin: 09/14/21 07:40 Dose: 3 ml Documented by: <Radha Claire PA-C - Last Filed: 09/14/21 14:30> Home medications: Home Medications Medication Instructions Recorded Confirmed Last Taken Type ascorbic acid (vitamin C) 500 mg 500 mg PO DAILY 09/13/21 09/13/21 09/13/21 History chewable tablet aspirin 81 mg tablet,delayed 81 mg PO DAILY 09/13/21 09/13/21 09/13/21 History release atorvastatin 10 mg tablet 1 tab PO BEDTIME 09/13/21 09/13/21 09/12/21 History dulaglutide 0.75 mg/0.5 mL 0.5 ml SUBCUT AQUINO 09/13/21 09/13/21 09/09/21 History subcutaneous pen injector (Trulicity) empagliflozin 25 mg tablet 1 tab PO DAILY 09/13/21 09/13/21 09/13/21 History (Jardiance) lisinopril 10 mg tablet 1 tab PO DAILY 09/13/21 09/13/21 09/13/21 History multivitamin 1 tab PO DAILY 0509/13/21 09/13/21 History <Radha Claire PA-C [facility] Last Filed: 09/14/21 14:30> Physical Exam Vital Signs: Vital Signs: Last Vital Signs Temp 97.9 F 09/14/21 12:50 Pulse 95 09/14/21 12:50 Resp 18 09/14/21 12:50 BP 115/62 09/14/21 12:50 Pulse Ox 96 09/14/21 12:50 BMI result Body Mass Index 28.8 <Radha Claire PA-C - Last Filed: 09/14/21 14:30> Const: General: comfortable, no acute distress and alert <Radha Claire PA-C Ma[facility] Last Filed: 09/14/21 14:30> Nutritional Appearance: well nourished <Radha Claire PA-C Ma[facility] Last Filed: 09/14/21 14:30> Orientation/consciousness: patient oriented x3 <Radha Claire PA-C MaPS Last Filed: 09/14/21 14:30> Resp: Effort & Inspection: normal respiratory effort <Radha Claire PA-C Ma[facility] Last Filed: 09/14/21 14:30> Cardio: Rate: regular rate <Radha Claire PA-C Ma[facility] Last Filed: 09/14/21 14:30> GI: Inspection: No distended, Yes obesity and Yes scar (infraumbilical) <JAIRO Lynn MaPS Last Filed: 09/14/21 14:30> Palpation (GI): Soft to palpation, Tenderness to palpation present (GI) in the LLQ and in the RLQ; Negative for with no rebound tenderness, no guarding and not rigid <Radha Claire PA-C MaPS Last Filed: 09/14/21 14:30> Percussion: Yes normal to percussion <Radha Claire PA-C MaPS Last Filed: 09/14/21 14:30> Skin: General skin exam: no rashes or lesions noted <Radha Claire PA-C MaPS Last Filed: 09/14/21 14:30> Neuro: General: patient oriented x3 <Radha Claire PA-C - Last Filed: 09/14/21 14:30> Extrem: General: Yes no clubbing, cyanosis or edema <Radha Claire PA-C - Last Filed: 09/14/21 14:30> Results Labs Result diagrams: : 09/14/21 06:10 09/14/21 06:10 <Radha Claire PA-C - Last Filed: 09/14/21 14:30> Labs: Abnormal lab results 09/13/21 09/13/21 09/13/21 Range/Units 17:33 17:33 18:34 WBC 14.4 H (4.8-10.8) X10*3/uL RBC 6.07 H (4.60-5.80) X10*6/uL Neut % (Auto) 75.2 H (45-73) % Lymph % (Auto) 16.7 L (20-40) % Abs Immat Gran (auto) 0.06 H (0.00-0.03) X10*3/uL Absolute Neuts (auto) 10.8 H (2.0-8.3) x10*3/uL Anion Gap (12-20) BUN 20 H (9-16) mg/dL Random Glucose 117 H D (60-115) mg/dL ALT 54 H (0-40) U/L Urine Glucose (UA) >=1000 H (NEG) MG/DL 09/14/21 09/14/21 Range/Units 06:10 06:10 WBC (4.8-10.8) X10*3/uL RBC (4.60-5.80) X10*6/uL Neut % (Auto) 73.6 H (45-73) % Lymph % (Auto) 16.4 L (20-40) % Abs Immat Gran (auto) 0.04 H (0.00-0.03) X10*3/uL Absolute Neuts (auto) (2.0-8.3) x10*3/uL Anion Gap 11 L (12-20) BUN (9-16) mg/dL Random Glucose (60-115) mg/dL ALT (0-40) U/L Urine Glucose (UA) (NEG) MG/DL Short CBC 09/13/21 09/14/21 Range/Units 17:33 06:10 WBC 14.4 H 9.6 (4.8-10.8) X10*3/uL Hgb 17.2 14.6 (14.0-18.0) g/dl Hct 51.6 45.3 (42.0-52.0) % Plt Count 367 275 D (160-400) X10*3/uL BMP 09/13/21 09/14/21 17:33 06:10 Sodium 139 136 Potassium 4.3 4.5 Chloride 102 106 Carbon Dioxide 29 24 BUN 20 H 14 Creatinine 0.92 0.79 Calcium 9.8 8.5 D Liver Function 09/13/21 Range/Units 17:33 Total Bilirubin 0.5 (0.0-1.0) mg/dL AST 20 (5-37) U/L ALT 54 H (0-40) U/L Alkaline Phosphatase 89 (39-117) U/L Albumin 4.3 (3.5-5.0) g/dL Urine 09/13/21 Range/Units 18:34 Urine Color YELLOW Urine Appearance HAZY Urine pH 7.5 (5.0-8.0) Ur Specific [place] 1.010 (1.005-1.025) Urine Protein NEG (NEG-TRACE) MG/DL Urine Glucose (UA) >=1000 H (NEG) MG/DL All other labs normal. <Radha Claire PA-C - Last Filed: 09/14/21 14:30> Imaging Additional studies: CT ABD PELVIS- Decompressed stomach. Normal caliber loops of small bowel. There is sigmoid colonic wall thickening and pericolonic fat stranding in the left lower quadrant consistent with acute diverticulitis. No free fluid, free air or drainable fluid collections identified. <FORTUNATO Lynn Last Filed: 09/14/21 14:30> Assessment and Plan (1) Diverticulitis: Status: Acute <FORTUNATO Lynn Last Filed: 09/14/21 14:30> Plan 41 year old male with PMH significant for diabetes mellitus, hypertension, hyperlipidemia, diverticulitis who presented to the ED with lower abdominal pain, nausea and vomiting found to have sigmoid diverticulitis. The current episode is uncomplicated and he is improving with nonoperative measures. Rec continuing IV antibiotics with PO abx upon discharge and advancing diet as tole rated. Patient reports several episodes of diverticulitis yearly. All of his episodes have been uncomplicated and treated supportively with resolution. However he states he already follows a high fiber diet and these multiple episodes are starting to interfere with his work and daily life. Given this, it was discussed he could follow up in the office with Dr. Borja to discuss prevention of furth er recurrence with elective sigmoid resection. He would likely need a repeat colonoscopy prior once current episode resolved unless the records can be obtained from his prior colonscopy/if it was performed within the last year. He is comfortable with this plan. <Radha Claire PA-C - Last Filed: 09/14/21 14:30> 41 year old male with PMH significant for diabetes mellitus, hypertension, hyperlipidemia, diverticulitis who presented to the ED with lower abdominal pain, nausea and vomiting found to have sigmoid diverticulitis. The current episode is uncomplicated and he is improving with nonoperative measures. Rec continuing IV antibiotics with PO abx upon discharge and advancing diet as tolerated. Patient reports several episodes of diverticulitis yearly. All of his episodes have been uncomplicated and treated supportively with resolution. However he states he already follows a high fiber diet and these multiple episodes are starting to interfere with his work and daily life. Given this, it was discussed he could follow up in the office with Dr. Borja to discuss prevention of further recurrence with elective sigmoid resection. He would likely need a repeat colonoscopy prior once current episode resolved unless the records can be obtained from his prior colonscopy/if it was performed within the last year. He is comfortable with this plan. Agree with above. Would recommend minimizing p.o. intake until the patient is pain-free. If his pain is still persisting on Friday, repeat CT to assess for abscess would be in order. Please call me with any surgical questions. <Krunal Borja MD - Last Filed: 09/14/21 15:45> Procedures Date of Service Date of Service: 09/14/21 <Radha Claire PA-C - Last Filed: 09/14/21 14:30>
[2021-09-14 16:18] LABS: Glucose, Whole Blood 61 mg/dL (60-115)
[2021-09-14] MEDS: Atorvastatin Calcium 10 MG TABLET PO (19:32)
[2021-09-14] MEDS: cefTRIAXone sodium 1 GM in 0.9 % Sodium Chloride 50 ML IV (19:32)
[2021-09-14 20:36] LABS: Glucose, Whole Blood 99 mg/dL (60-115)
[2021-09-15 03:38] VITALS: BP 101/62; PULSE 91; RESP 18; TEMP 36.5; O2SAT 96
[2021-09-15] MEDS: metroNIDAZOLE 500 MG TABLET PO ×3 (05:28→20:11)
[2021-09-15 07:18] VITALS: BP 115/67; PULSE 88; RESP 18; TEMP 36.3; O2SAT 96
[2021-09-15 07:26] LABS: Glucose, Whole Blood 85 mg/dL (60-115)
[2021-09-15] MEDS: Lactated Ringers 1,000 ML 80 ML IVCONT ×2 (08:29→22:27)
[2021-09-15] MEDS: Multivitamin TABLET 1 TAB PO (08:29)
[2021-09-15] MEDS: Aspirin Enteric Coated 81 MG TABLET.DR PO (08:29)
[2021-09-15 11:47] VITALS: BP 115/68; PULSE 87; RESP 18; TEMP 36.9; O2SAT 97
[2021-09-15 11:54] LABS: Glucose, Whole Blood 72 mg/dL (60-115)
--- NOTE | 2021-09-15 12:13 | P.PNIM_ITS ---
Subjective Subjective Date of Service: 09/15/21 Interval History: abd pain Review of Systems Patient still has abdominal pain significant. has nausea , no vomiting, no fevers Physical Exam 2 Vital Signs: Vital Signs: Last Vital Signs Temp 98.5 F 09/15/21 11:47 Pulse 87 09/15/21 11:47 Resp 18 09/15/21 11:47 BP 115/68 09/15/21 11:47 Pulse Ox 97 09/15/21 11:47 BMI result Body Mass Index 28.8 Appearance: Alert.? Oriented X3.? not in distress.?. cvs: rrr, [id number] , no murmur res: clear to auscultation ,no rhonchii or wheezing abd: no rebound or guarding ,llq pain, bs present. ext pulses present , no cyanosis . neuro: axo3 , nonfocal. Objective Data Active Medications Acetaminophen (Acetaminophen 325 Mg Tablet) 650 mg PO Q6H PRN PRN Reason: Pain, Mild (Pain Scale 1-3) Aspirin (Aspirin Enteric Coated 81 Mg Tablet.) 81 mg PO DAILY [facility] Last Admin: 09/15/21 08:29 Dose: 81 mg Documented by: MARK Atorvastatin Calcium (Atorvastatin Calcium 10 Mg Tablet) 10 mg PO BEDTIME [facility] Last Admin: 09/14/21 19:32 Dose: 10 mg Documented by: BREA Dextrose (Dextrose 50 % 25 Gm/50 Ml Syringe) 25 gm IVPUSH Q15M PRN; Protocol PRN Reason: per Hypoglycemia Standing Ord. Glucose (Glucose Gel 15 Gm Gel..Gram.) 15 gm PO Q15M PRN; Protocol PRN Reason: per Hypoglycemia Standing Ord. Ceftriaxone Sodium 1 gm/ (Sodium Chloride) 50 mls @ 100 mls/hr IV Q24H [facility] Last Infusion: 09/14/21 20:30 Dose: 0 mls/hr Documented by: BREA Lactated Ringer's (Lr) 1,000 mls @ 80 mls/hr IVCONT .[id number] [facility] Last Admin: 09/15/21 08:29 Dose: 80 mls/hr Documented by: MARK Insulin Human Lispro (Insulin Lispro 100 Unit/Ml 3 Ml Vial) 0 unit SUBCUT QIDACHS [facility]; Protocol Last Admin: 09/15/21 12:03 Dose: Not Given Documented by: MARK Non-Admin Reason: No Insulin Coverage Lisinopril (Lisinopril 10 Mg Tablet) 10 mg PO DAILY [facility]; Protocol Last Admin: 09/14/21 10:06 Dose: 10 mg Documented by: MORA Metronidazole (Metronidazole 500 Mg Tablet) 500 mg PO Q8H [facility] Last Admin: 09/15/21 05:28 Dose: 500 mg Documented by: BREA Morphine Sulfate (Morphine Sulfate 4 Mg/Ml Cartridge) 4 mg IVPUSH Q4H PRN; Protocol PRN Reason: Pain, Severe (Pain Scale 7-10) Last Admin: 09/14/21 07:40 Dose: 4 mg Documented by: MORA Multivitamins/Vitamin C (Multivitamin Tablet) 1 tab PO DAILY [facility] Last Admin: 09/15/21 08:29 Dose: 1 tab Documented by: MARK Ondansetron HCl (Ondansetron Hcl 4 Mg/2 Ml Vial) 4 mg IVPUSH Q8H PRN PRN Reason: Nausea and Vomiting Last Admin: 09/14/21 03:42 Dose: 4 mg Documented by: GILDA Sodium Chloride (0.9 % Sodium Chloride Flush 3 Ml Syringe) 3 ml IVFLUSH QSHIFT [facility] Last Admin: 09/15/21 08:31 Dose: Not Given Documented by: MARK Non-Admin Reason: IV Running Labs CBC & Chem 7: 09/14/21 06:10 09/14/21 06:10 Labs: Laboratory Results - last 24 hr 09/14/21 09/14/21 09/14/21 12:17 16:13 20:28 POC Glucose 71 61 99 09/15/21 09/15/21 07:21 11:50 POC Glucose 85 72 Microbiology Microbiology Results: Microbiology 09/13/21 20:41 Blood Culture - Preliminary Blood - Venous No growth after 24 hours. 09/13/21 20:29 Blood Culture - Preliminary Blood - Venous No growth after 24 hours. Assessment and Plan (1) Intractable nausea and vomiting: Status: Acute (2) Diverticulitis: Status: Acute Plan 41-year-old male with past medical history of diabetes and hypertension presents to the hospital with abdominal pain found to have acute diverticulitis Acute Diverticulitis - uncomplicated abd pain still similar to yesterday, feels nauseated. - will treat with IV antibiotics - monitor improvement IV fluids,full liquid diet,pain control intractable nausea vomiting improving - will treat with supportive measures, antiemetics ? Diabetes: 80-90 - hold oral antihyperglycemics - start low-dose sliding scale insulin - diabetic diet hypertension:blood pressure stable hold antihypertensive DVT prophylaxis:? Lovenox inpatient need : for IV antibiotics and pain management for diverticulitis Quality Stroke Does the patient have a stroke diagnosis?: No VTE Prior VTE?: No VTE Risk Level:: Medical - moderate - high VTE Device Contraindication: N/A - Device Ordered VTE Drug Contraindication: Treatment Not Indicated
[2021-09-15 15:17] VITALS: BP 121/76; PULSE 87; RESP 18; TEMP 36.4; O2SAT 97
[2021-09-15 16:31] LABS: Glucose, Whole Blood 73 mg/dL (60-115)
[2021-09-15 19:39] VITALS: BP 131/82; PULSE 84; RESP 18; TEMP 36.8; O2SAT 97
[2021-09-15] MEDS: Atorvastatin Calcium 10 MG TABLET PO (20:11)
[2021-09-15 20:25] LABS: Glucose, Whole Blood 89 mg/dL (60-115)
[2021-09-15] MEDS: cefTRIAXone sodium 1 GM in 0.9 % Sodium Chloride 50 ML IV (20:41)
[2021-09-15] MEDS: Morphine Sulfate 4 MG/ML CARTRIDGE IVPUSH (22:25)
[2021-09-15 23:15] VITALS: BP 121/62; PULSE 78; RESP 16; TEMP 36.4; O2SAT 96
[2021-09-16 03:25] VITALS: BP 123/72; PULSE 89; RESP 16; TEMP 36.2; O2SAT 96
[2021-09-16] MEDS: Lactated Ringers 1,000 ML 80 ML IVCONT (03:38)
[2021-09-16] MEDS: metroNIDAZOLE 500 MG TABLET PO ×3 (03:38→21:05)
[2021-09-16 07:07] VITALS: BP 116/69; PULSE 89; RESP 18; TEMP 36.2; O2SAT 97
[2021-09-16 07:36] LABS: Glucose, Whole Blood 93 mg/dL (60-115)
[2021-09-16] MEDS: Aspirin Enteric Coated 81 MG TABLET.DR PO (09:56)
[2021-09-16] MEDS: Multivitamin TABLET 1 TAB PO (09:56)
[2021-09-16 11:23] VITALS: BP 134/71; PULSE 95; RESP 18; TEMP 527.7; TEMP 982; O2SAT 99
[2021-09-16 11:45] LABS: Glucose, Whole Blood 86 mg/dL (60-115)
--- NOTE | 2021-09-16 12:01 | HO.PM.IMPN ---
Subjective Subjective Date of Service: 09/16/21 Interval History: abd pain Review of Systems Patient still has abdominal pain significant. has nausea , no vomiting, no fevers Physical Exam Vital Signs: Vital Signs: Last Vital Signs Temp 982 F H 09/16/21 11:23 Pulse 95 09/16/21 11:23 Resp 18 09/16/21 11:23 BP 134/71 09/16/21 11:23 Pulse Ox 99 09/16/21 11:23 BMI result Body Mass Index 28.8 Appearance: Alert.? Oriented X3.? not in distress.?. cvs: rrr, [id number] , no murmur res: clear to auscultation ,no rhonchii or wheezing abd: no rebound or guarding ,llq pain, bs present. ext pulses present , no cyanosis . neuro: axo3 , nonfocal. Objective Data Active Medications Acetaminophen (Acetaminophen 325 Mg Tablet) 650 mg PO Q6H PRN PRN Reason: Pain, Mild (Pain Scale 1-3) Aspirin (Aspirin Enteric Coated 81 Mg Tablet.) 81 mg PO DAILY [facility] Last Admin: 09/16/21 09:56 Dose: 81 mg Documented by: SANDEEP Atorvastatin Calcium (Atorvastatin Calcium 10 Mg Tablet) 10 mg PO BEDTIME [facility] Last Admin: 09/15/21 20:11 Dose: 10 mg Documented by: BREA Dextrose (Dextrose 50 % 25 Gm/50 Ml Syringe) 25 gm IVPUSH Q15M PRN; Protocol PRN Reason: per Hypoglycemia Standing Ord. Glucose (Glucose Gel 15 Gm Gel..Gram.) 15 gm PO Q15M PRN; Protocol PRN Reason: per Hypoglycemia Standing Ord. Ceftriaxone Sodium 1 gm/ (Sodium Chloride) 50 mls @ 100 mls/hr IV Q24H [facility] Last Infusion: 09/15/21 22:18 Dose: 0 mls/hr Documented by: BREA Insulin Human Lispro (Insulin Lispro 100 Unit/Ml 3 Ml Vial) 0 unit SUBCUT QIDACHS [facility]; Protocol Last Admin: 09/16/21 07:49 Dose: Not Given Documented by: SANDEEP Non-Admin Reason: No Insulin Coverage Lisinopril (Lisinopril 10 Mg Tablet) 10 mg PO DAILY [facility]; Protocol Last Admin: 09/14/21 10:06 Dose: 10 mg Documented by: MORA Metronidazole (Metronidazole 500 Mg Tablet) 500 mg PO Q8H [facility] Last Admin: 09/16/21 03:38 Dose: 500 mg Documented by: BREA Morphine Sulfate (Morphine Sulfate 4 Mg/Ml Cartridge) 4 mg IVPUSH Q4H PRN; Protocol PRN Reason: Pain, Severe (Pain Scale 7-10) Last Admin: 09/15/21 22:25 Dose: 4 mg Documented by: BREA Multivitamins/Vitamin C (Multivitamin Tablet) 1 tab PO DAILY [facility] Last Admin: 09/16/21 09:56 Dose: 1 tab Documented by: SANDEEP Ondansetron HCl (Ondansetron Hcl 4 Mg/2 Ml Vial) 4 mg IVPUSH Q8H PRN PRN Reason: Nausea and Vomiting Last Admin: 09/14/21 03:42 Dose: 4 mg Documented by: GILDA Oxycodone HCl (Oxycodone Hcl Immed Release 5 Mg Tablet) 5 mg PO Q6H PRN PRN Reason: Pain, Mild (Pain Scale 1-3) Sodium Chloride (0.9 % Sodium Chloride Flush 3 Ml Syringe) 3 ml IVFLUSH QSHIFT [facility] Last Admin: 09/16/21 09:57 Dose: Not Given Documented by: SANDEEP Non-Admin Reason: IV Running Labs CBC & Chem 7: 09/14/21 06:10 09/14/21 06:10 Labs: Laboratory Results - last 24 hr 09/15/21 09/15/21 09/16/21 15:19 19:42 07:11 POC Glucose 73 89 93 09/16/21 11:27 POC Glucose 86 Microbiology Microbiology Results: Microbiology 09/13/21 20:41 Blood Culture - Preliminary Blood - Venous No growth after 48 hours. 09/13/21 20:29 Blood Culture - Preliminary Blood - Venous No growth after 48 hours. Assessment and Plan (1) Intractable nausea and vomiting: Status: Acute (2) Diverticulitis: Status: Acute Plan 41-year-old male with past medical history of diabetes and hypertension presents to the hospital with abdominal pain found to have acute diverticulitis ?Acute? Diverticulitis - uncomplicated abd pain somewhat improving, feels nauseated. - will treat with IV antibiotics - monitor improvement IV fluids,full liquid diet,pain control ?intractable nausea vomiting improving - will treat with supportive measures, antiemetics ? Diabetes: 80-90 - hold oral antihyperglycemics - start low-dose sliding scale insulin - diabetic diet ?hypertension:blood pressure stable hold? antihypertensive DVT prophylaxis:? Lovenox inpatient need : for IV antibiotics and pain management for diverticulitis Quality Stroke Does the patient have a stroke diagnosis?: No VTE Prior VTE?: No VTE Risk Level:: Medical - moderate - high VTE Device Contraindication: N/A - Device Ordered VTE Drug Contraindication: Treatment Not Indicated
[2021-09-16 15:07] VITALS: BP 140/81; PULSE 100; RESP 18; TEMP 36.4; O2SAT 96
[2021-09-16] MEDS: 0.9 % Sodium Chloride Flush 3 ML SYRINGE IVFLUSH ×2 (16:27→23:39)
[2021-09-16 16:34] LABS: Glucose, Whole Blood 190 mg/dL (60-115)
[2021-09-16 17:30] LABS: Glucose, Whole Blood 72 mg/dL (60-115)
--- NOTE | 2021-09-16 18:20 | PC.NURSE ---
P BS 190 ,patient refusing insulin coverage I notified,made aware patient is on regular diet E diet will be changed to diabetic diet ,patient made aware
[2021-09-16 19:32] VITALS: BP 115/69; PULSE 103; RESP 18; TEMP 36.5; O2SAT 94
[2021-09-16 19:59] LABS: Glucose, Whole Blood 151 mg/dL (60-115)
[2021-09-16] MEDS: cefTRIAXone sodium 1 GM in 0.9 % Sodium Chloride 50 ML IV (20:24)
[2021-09-16] MEDS: Atorvastatin Calcium 10 MG TABLET PO (20:25)
[2021-09-17] VITALS: BP 120/62; PULSE 60; RESP 18; TEMP 36.6; O2SAT 97
[2021-09-17 04:00] VITALS: BP 91/55; PULSE 80; RESP 18; TEMP 36.5; O2SAT 98
[2021-09-17] MEDS: metroNIDAZOLE 500 MG TABLET PO (05:32)
[2021-09-17 07:07] VITALS: BP 111/58; PULSE 80; RESP 18; TEMP 36.8; O2SAT 96
[2021-09-17 07:17] LABS: Glucose, Whole Blood 119 mg/dL (60-115)
[2021-09-17] MEDS: Aspirin Enteric Coated 81 MG TABLET.DR PO (07:36)
[2021-09-17] MEDS: 0.9 % Sodium Chloride Flush 3 ML SYRINGE IVFLUSH (07:36)
[2021-09-17] MEDS: Multivitamin TABLET 1 TAB PO (07:36)
--- NOTE | 2021-09-17 07:53 | PM.PNGS ---
Subjective Subjective Date of Service: 09/17/21 Patient reports: no new complaints, feels better, still having pain, pain is less, tolerating a regular diet and flatus Interval history: The patient reports continued left lower quadrant pain but at times notes that it is better and other times states that is about the same. He is tolerating his diet and passing gas and moving his bowels. Per nursing, he is not requesting any pain medicine. He otherwise denies any new complaints. Physical Exam Vital Signs: Vital Signs: Last Vital Signs Temp 98.2 F 09/17/21 07:07 Pulse 80 09/17/21 07:07 Resp 18 09/17/21 07:07 BP 111/58 L 09/17/21 07:07 Pulse Ox 96 09/17/21 07:07 BMI result Body Mass Index 28.8 On exam, he is nontoxic and comfortable, watching TV. NC/AT, PERRLA, EOMI Mucous membranes are moist Abdomen is overweight but soft. There is still left lower quadrant tenderness but it seems to be less based on last exam. No peritoneal sign to percussion is noted. Skin is good turgor and is free of rashes Extremities are free of cyanosis clubbing edema Mood, affect insight all seem appropriate Objective Data Active Medications Acetaminophen (Acetaminophen 325 Mg Tablet) 650 mg PO Q6H PRN PRN Reason: Pain, Mild (Pain Scale 1-3) Aspirin (Aspirin Enteric Coated 81 Mg Tablet.) 81 mg PO DAILY [facility] Last Admin: 09/17/21 07:36 Dose: 81 mg Documented by: SANDEEP Atorvastatin Calcium (Atorvastatin Calcium 10 Mg Tablet) 10 mg PO BEDTIME [facility] Last Admin: 09/16/21 20:25 Dose: 10 mg Documented by: JESSE Dextrose (Dextrose 50 % 25 Gm/50 Ml Syringe) 25 gm IVPUSH Q15M PRN; Protocol PRN Reason: per Hypoglycemia Standing Ord. Glucose (Glucose Gel 15 Gm Gel..Gram.) 15 gm PO Q15M PRN; Protocol PRN Reason: per Hypoglycemia Standing Ord. Ceftriaxone Sodium 1 gm/ (Sodium Chloride) 50 mls @ 100 mls/hr IV Q24H [facility] Last Infusion: 09/16/21 21:02 Dose: 0 mls/hr Documented by: JESSE Insulin Human Lispro (Insulin Lispro 100 Unit/Ml 3 Ml Vial) 0 unit SUBCUT QIDACHS [facility]; Protocol Last Admin: 09/17/21 07:25 Dose: Not Given Documented by: SANDEEP Non-Admin Reason: No Insulin Coverage Lisinopril (Lisinopril 10 Mg Tablet) 10 mg PO DAILY [facility]; Protocol Last Admin: 09/14/21 10:06 Dose: 10 mg Documented by: MORA Metronidazole (Metronidazole 500 Mg Tablet) 500 mg PO Q8H [facility] Last Admin: 09/17/21 05:32 Dose: 500 mg Documented by: ANDREA Multivitamins/Vitamin C (Multivitamin Tablet) 1 tab PO DAILY [facility] Last Admin: 09/17/21 07:36 Dose: 1 tab Documented by: SANDEEP Ondansetron HCl (Ondansetron Hcl 4 Mg/2 Ml Vial) 4 mg IVPUSH Q8H PRN PRN Reason: Nausea and Vomiting Last Admin: 09/14/21 03:42 Dose: 4 mg Documented by: GILDA Oxycodone HCl (Oxycodone Hcl Immed Release 5 Mg Tablet) 5 mg PO Q6H PRN PRN Reason: Pain, Mild (Pain Scale 1-3) Sodium Chloride (0.9 % Sodium Chloride Flush 3 Ml Syringe) 3 ml IVFLUSH QSHIFT [facility] Last Admin: 09/17/21 07:36 Dose: 3 ml Documented by: SANDEEP Labs CBC & Chem 7: 09/14/21 06:10 09/14/21 06:10 Labs: Laboratory Results - last 24 hr 09/16/21 09/16/21 09/16/21 11:27 13:56 15:10 POC Glucose 86 72 190 H 09/16/21 09/17/21 19:34 06:57 POC Glucose 151 H 119 H Procedures Date of Service Date of Service: 09/17/21 Progress Note: A&P Assessment and plan (1) Pulmonary hypertension: Status: Acute (2) Diverticulitis: Status: Acute (3) Intractable nausea and vomiting: Status: Acute (4) Diabetes: Status: Acute (5) Hypertension: Status: Acute Plan While the patient has had interval improvement, he reports multiple episodes of diverticulitis that have impacted his life and would like to discuss elective sigmoid colon. Plan regarding discharge is as per the hospitalist team, the patient should follow up with Dr. Abby is of colorectal surgery or the colorectal surgeon of his choice. The patient may also benefit from dietary counseling regarding his diabetes, since he notes that he is struggling to make change and proper dietary choices. Please call me if any new surgical issues arise. Time Spent With Patient Time: Total time spent is greater than 50% in coordination of care (as documented) at patient's floor/unit and/or counseling patient: Quality Stroke Does the patient have a stroke diagnosis?: No VTE Prior VTE?: No VTE Risk Level:: Medical - moderate - high VTE Device Contraindication: N/A - Device Ordered VTE Drug Contraindication: Treatment Not Indicated
[2021-09-17] MEDS: Amoxicillin/Potassium Clav 875 MG TABLET PO (10:33)
[2021-09-17 10:42] LABS: Glucose, Whole Blood 132 mg/dL (60-115)
--- NOTE | 2021-09-17 11:06 | PM.DS ---
DS: Providers Provider Date of Service: 09/17/21 Date of admission: 09/13/21 21:54 Primary care physician: Anuja Odonnell MD Consults: 09/14/21 12:40 Consult to General Surgery Routine Consulting Provider: [facility] Surgeons Reason for consultation: RECCURRENT Diverticulitis Has provider been notified: No DS: Diagnosis Discharge Diagnosis (1) Pulmonary hypertension: Status: Acute (2) Diverticulitis: Status: Acute (3) Intractable nausea and vomiting: Status: Acute (4) Diabetes: Status: Acute (5) Hypertension: Status: Acute DS: Summary Hospital Course Hospital Course: 41-year-old male with past medical history of hypertension, diabetes,? SHARON, non fatty liver disease, presents to the hospital with complaints of abdominal pain.? Patient reports that the abdominal pain started the day prior, associated with nausea vomiting, constipation, the pain is 10/10, radiating across the abdomen, alleviated with pain medications given in the ED. patient denies any chest pain, no shortness of breath, no urinary symptoms and no lower extremity edema.? No headache or change in vision.? On arrival to the ED patient hemodynamically stable with no significant abnormal vitals Labs are significant for WBC count of 14.4, otherwise unremarkable, UA negative, CT abdomen shows uncomplicated diverticulitis patient has significant nausea vomiting, and does not tolerate p.o. antibiotics will be admitted for IV antibiotics and further management. Hospital course: Patient came to the hospital because of left lower quadrant pain found to have acute diverticulitis: Started on IV antibiotics seems to be improved, tolerating diet. Going home with p.o. antibiotics. In addition patient was seen by surgeries due to recurrent bouts of diverticulitis-patient is to follow up outpatient with surgery for further management. Further management outpatient as per PCP. Above management discussed with the patient in detail length he understand and in agreement with the above plan, time spent 50 minutes and 50% time spent on counseling. Significant findings: As above. Procedures performed: None. Treatment and response: As above. Complications: None. Time Spent with Patient Time attestation: Total time spent providing and/or coordinating discharge services: Discharge coordination time: Greater than 30 minutes Quality: Safe Use of Opioids Does Pt have an Active Cancer Diagnosis on the Problem List?: No Quality: Stroke Does the patient have a stroke diagnosis?: No Physical Exam Vital Signs: Vital Signs: Last Vital Signs Temp 98.2 F 09/17/21 07:07 Pulse 80 09/17/21 07:07 Resp 18 09/17/21 07:07 BP 111/58 L 09/17/21 07:07 Pulse Ox 96 09/17/21 07:07 BMI result Body Mass Index 28.8 On exam, he is nontoxic and comfortable, eating breakfast. NC/AT, PERRLA, EOMI Mucous membranes are moist Abdomen soft, nondistended, left lower quadrant pain minimal, bowel sounds present. No rebound or guarding. Skin is good turgor and is free of rashes Extremities are free of cyanosis clubbing edema Mood, affect insight all seem appropriate DS: Data Data Completed and Pending Labs on day of discharge: Laboratory Results - last 24 hr 09/16/21 09/16/21 09/16/21 11:27 13:56 15:10 POC Glucose 86 72 190 H 09/16/21 09/17/21 09/17/21 19:34 06:57 10:25 POC Glucose 151 H 119 H 132 H Preliminary micro results at discharge 09/13/21 20:41 Blood Culture - Preliminary Blood - Venous No growth after 48 hours. 09/13/21 20:29 Blood Culture - Preliminary Blood - Venous No growth after 48 hours. Additional Comments Additional comments: CT/CT abdomen pelvis wo con IMPRESSION: Acute, uncomplicated diverticulitis of the sigmoid colon.? ? Fleischner guidelines were followed. Discharge Plan Discharge Patient Disposition: Home, Self-Care Discharge Diagnosis: Diverticulitis Referrals: Anuja Odonnell MD [Primary Care Provider] - 1 Week Chet Pearce MD [Physician] - 2 Weeks Discharge Medications: New amoxicillin-pot clavulanate 875-125 mg Tablet 875 mg PO Q12H Qty: 10 0RF oxycodone 5 mg tablet 5 mg PO BID PRN (Reason: pain) Qty: 10 0RF Continued atorvastatin 10 mg tablet 1 tab PO BEDTIME 0RF lisinopril 10 mg tablet 1 tab PO DAILY 0RF Jardiance 25 mg tablet 1 tab PO DAILY 0RF Trulicity 0.75 mg/0.5 mL pen injector 0.5 ml subcut AQUINO 0RF multivitamin Tablet 1 tab PO DAILY 0RF aspirin 81 mg Tablet,Delayed Release (Dr/Ec) 81 mg PO DAILY 0RF ascorbic acid (vitamin C) 500 mg Tablet,Chewable 500 mg PO DAILY 0RF Discharge Orders: Discharge Order (Routine); Ordered 09/17/21 Ordered By: Alonzo Booth Diet: advance to usual diet Activity on Discharge: As tolerated Stand Alone Forms: Patient Portal Discharge page Care Plan Goals: Patient came to the hospital because of left lower quadrant pain found to have acute diverticulitis: Started on IV antibiotics seems to be improved, tolerating diet. Going home with p.o. antibiotics. In addition patient was seen by surgeries due to recurrent bouts of diverticulitis-patient is to follow up outpatient with surgery for further management. Further management outpatient as per PCP. Health Concerns: As above. Plan of Treatment: As above. Assessment: As above.
[2021-09-17 11:31] VITALS: BP 122/79; PULSE 99; RESP 18; TEMP 36.4; O2SAT 96
--- NOTE | 2021-09-17 11:37 | MHC.CM.PN ---
NURSE CASE MANAGERMNOTE ELECTRONIC MEDICAL RECORD REVIEWED ALONG WITH CASE DISUCSSED WITH STAFF NURSE , MET WITH PATIENT AND HIS HE HAD CONCERNS REGARDING HIS SPECIAL MEXICATIONS FROM HOME FOR THE TREATMENT FOR HIS DIABETES. PATIENT NOW HAS ORDERS FOR DISCHARGE HOME NO SERVICES DISCHARGE HOME WITH B NO SERVICES PCP FOLLOW UP WITH DR GEORGE PALM FOLLOW UP WITH HIS ENDCRINOLOGIST TRANSPORTATION FAMILY
== END 2021-09-17 13:15 | disposition home or self-care (01) | DRG 392 ==
LOC: HO.ED 20:19 → HO.EDOVER 22:03 → HO.S3 09-14 11:13
PROVIDERS: Physician Assistant; Admitting Provider Internal Medicine; Emergency Provider Emergency Medicine Emergency Medical Services; PCP Internal Medicine; Visit Provider Internal Medicine
DX: K57.92 Diverticulitis of intestine, part unspecified, without perforation or abscess without bleeding (principal); I10 Essential (primary) hypertension; E11.9 Type 2 diabetes mellitus without complications; K76.9 Liver disease, unspecified; G47.33 Obstructive sleep apnea (adult) (pediatric); I27.20 Pulmonary hypertension, unspecified; Z20.822 Contact with and (suspected) exposure to COVID-19; Z90.79 Acquired absence of other genital organ(s); Z88.1 Allergy status to other antibiotic agents; Z91.040 Latex allergy status; Z91.013 Allergy to seafood; Z91.010 Allergy to peanuts; Z79.82 Long term (current) use of aspirin; Z79.899 Other long term (current) drug therapy
CPT/HCPCS: 36415; 74176; 80048; 80053; 81001; 82272; 82947; 83605; 83690; 85025; 87040; 87635; 96361; 96365; 96375; 99285; J0696; J2270; J2405

== ENCOUNTER → 2021-10-10 12:54 | Outpatient (BNVA) | payer OTHER, SELFPAY | PROVIDERS: PCP Internal Medicine; Visit Provider Surgery | DX: Z13.89 Encounter for screening for other disorder (principal) ==

== ENCOUNTER 2023-04-15 09:42 | Day surgery (SDC) | payer OTHER, SELFPAY ==
[2023-04-15] VITALS (8 sets, daily range): BP systolic 95–129; BP diastolic 47–76; PULSE 89–102; RESP 12–18; TEMP 36.3–36.6; O2SAT 95–100; BMI 29.6
--- NOTE | ~2023-04-15 | XR_ITS ---
EXAMINATION: XR CHEST CLINICAL INFORMATION: Evaluate for aspiration COMPARISON: Chest radiograph from 07/29/2022 TECHNIQUE: Frontal view of the chest was obtained. FINDINGS: Streaky opacities of the left mid and lower lung field nonspecific though may reflect atelectasis versus sequela of aspiration. Bilateral low lung volumes. No pneumothorax. Trachea is midline. Cardiomediastinal silhouette is stable. No large pleural effusion. Osseous structures are intact. Soft tissues are unremarkable. XR/XR chest 1V IMPRESSION: 1. Streaky opacities of the left mid and lower lung field nonspecific though may reflect atelectasis versus sequela of aspiration. 2. Bilateral low lung volumes.
[2023-04-15] MEDS: Lactated Ringers 1,000 ML 100 ML IVCONT (10:11)
[2023-04-15 10:18] LABS: Glucose, Whole Blood 101 mg/dL (60-115)
--- NOTE | 2023-04-15 10:30 | P.CONAN_ITS ---
Documented by User: Laura Booth NP 04/14/23 13:33 HPI - Anesthesia Eval Consult details Narrative: 42yo M for Colonoscopy Anesthesia Pre-Procedure Meds Is the patient on any of the following meds?: Dulaglutide (Trulicity) PMFSH Active Problems Active Problems: All Active Problems (Updated 09/17/21 @ 07:57 by Krunal Borja MD, FACS, [facility]) Diverticulitis (Acute) Diabetes (Acute) Pulmonary hypertension (Acute) Hypertension (Acute) Intractable nausea and vomiting (Acute) Past Medical History Medical History Diabetes Hypertension Pulmonary hypertension Surgical History Surgical History H/O umbilical hernia repair History of orchiectomy, unilateral Social History Social History Household Members: Spouse Housing: House Do you presently have visiting nurse or other home services: No Patient Tobacco Use Status: Never used Tobacco Use of substances other than those prescribed or required for medical reasons: Yes Substance Use Type: Marijuana Substance Use Type Other:: marijuana gummy on occas Are you DNR?: No Advance Directives: No Advance Directives Information Provided: Yes service: No Current occupational status: employed Meds Allergies Allergy/AdvReac Type Severity Reaction Status Date / Time ciprofloxacin [From CIPRO] Allergy Intermediate HIVES, Verified 10/10/21 13:06 BREATHING Latex, Natural Rubber Allergy Mild NAUSEA & Verified 10/10/21 13:06 [LATEX, NATURAL RUBBER] VOMITING peanut [PEANUT] Allergy Mild NAUSEA & Verified 10/10/21 13:06 VOMITING nickel Allergy Hives Verified 10/10/21 13:06 shellfish derived Allergy Vomiting Verified 10/10/21 13:06 Home Medications Medication Instructions Recorded Confirmed Last Taken Type ascorbic acid (vitamin C) 500 mg 500 mg PO DAILY 09/13/21 10/10/21 09/13/21 History chewable tablet aspirin 81 mg tablet,delayed 81 mg PO DAILY 09/13/21 10/10/21 09/13/21 History release atorvastatin 10 mg tablet 1 tab PO BEDTIME 09/13/21 10/10/21 09/12/21 History dulaglutide 0.75 mg/0.5 mL 0.5 ml subcut AQUINO 09/13/21 10/10/21 03/30/23 History subcutaneous pen injector (Trulicity) empagliflozin 25 mg tablet 1 tab PO DAILY 09/13/21 10/10/21 09/13/21 History (Jardiance) lisinopril 10 mg tablet 1 tab PO DAILY 09/13/21 10/10/21 04/15/23 08:00 History multivitamin 1 tab PO DAILY 09/13/21 10/10/21 09/13/21 History Assessment and Plan Assessment Anesthesia Assessment: Chart Reviewed Documented by User: Mary Alice Kim DO 04/15/23 10:39 HPI - Anesthesia Eval Anesthesia Pre-Procedure Meds Is the patient on any of the following meds?: Dulaglutide (Trulicity) If Yes to any meds - educate patient: Pt education - increased risk of aspiration PMFSH Past Medical History Medical History Diabetes Hypertension Pulmonary hypertension Surgical History Surgical History H/O umbilical hernia repair History of orchiectomy, unilateral History of Problems with Anesthesia: No Social History Social History Household Members: Spouse Housing: House Do you presently have visiting nurse or other home services: No Patient Tobacco Use Status: Never used Tobacco Use of substances other than those prescribed or required for medical reasons: Yes Substance Use Type: Marijuana Substance Use Type Other:: marijuana gummy on occas Are you DNR?: No Advance Directives: No Advance Directives Information Provided: Yes service: No Current occupational status: employed Meds Allergies Allergy/AdvReac Type Severity Reaction Status Date / Time ciprofloxacin [From CIPRO] Allergy Intermediate HIVES, Verified 10/10/21 13:06 BREATHING Latex, Natural Rubber Allergy Mild NAUSEA & Verified 10/10/21 13:06 [LATEX, NATURAL RUBBER] VOMITING peanut [PEANUT] Allergy Mild NAUSEA & Verified 10/10/21 13:06 VOMITING nickel Allergy Hives Verified 10/10/21 13:06 shellfish derived Allergy Vomiting Verified 10/10/21 13:06 Home Medications Medication Instructions Recorded Confirmed Last Taken Type ascorbic acid (vitamin C) 500 mg 500 mg PO DAILY 09/13/21 10/10/21 09/13/21 History chewable tablet aspirin 81 mg tablet,delayed 81 mg PO DAILY 09/13/21 10/10/21 09/13/21 History release atorvastatin 10 mg tablet 1 tab PO BEDTIME 09/13/21 10/10/21 09/12/21 History dulaglutide 0.75 mg/0.5 mL 0.5 ml subcut AQUINO 09/13/21 10/10/21 03/30/23 History subcutaneous pen injector (Trulicity) empagliflozin 25 mg tablet 1 tab PO DAILY 09/13/21 10/10/21 09/13/21 History (Jardiance) lisinopril 10 mg tablet 1 tab PO DAILY 09/13/21 10/10/21 04/15/23 08:00 History multivitamin 1 tab PO DAILY 09/13/21 10/10/21 09/13/21 History Exam Exam Date and Time: April 15, 2023 102 Height,Weight and Vital Signs: Height 5 ft 4 in Weight 78.188 kg Vital Signs Temperature 97.3 F 04/15/23 10:02 Pulse Rate 98 04/15/23 10:02 Respiratory Rate 16 04/15/23 10:02 Blood Pressure 129/76 04/15/23 10:02 Pulse Oximetry 96 04/15/23 10:02 Oxygen Delivery Method Room Air 04/15/23 10:02 Temperature 97.3 F 04/15/23 10:02 Pulse Rate 98 04/15/23 10:02 Respiratory Rate 16 04/15/23 10:02 Blood Pressure 129/76 04/15/23 10:02 Pulse Oximetry 96 04/15/23 10:02 Oxygen Delivery Method Room Air 04/15/23 10:02 Airway Mallampati Class: II TM Dist: <=3cm Neck ROM: Full Loose/Missing/Broken Teeth: No Heart: S1S2 Lungs: CTAB Assessment and Plan Assessment Anesthesia Assessment: Anesthesia Plan Discussed and Chart Reviewed Final Anesthetic Review History of Problems with Anesthesia: No NPO: Yes ASA Class: II Final Preanesthetic Review: No Changes in Pt Med Stat, Meds/Allgs Chart Reviewed, Consent Obtained/Reviewed and Anes Risks/Benef Reviewed Patient Risk: Low Procedure Risk: Low Anesthetic Plan Anesthetic Plan: MAC: and Agree w/ Assess. and Plan Disposition: Standard PACU
--- NOTE | 2023-04-15 11:00 | MHC.SHP ---
Pre-Procedural Eval Section A Date of Service: 04/15/23 The patient is an INPATIENT: No Changes since office visit: No Cold of Flu in the past 2 weeks, No New Medical Problems, No Changes in Medication and No Patient answered all questions The History & Physical has been completed within 30 days and I have reviewed it.: Yes Section B Chief Complaint: Diverticulitis of intestine, part unspecified, wit Allergies: Allergies Allergy/AdvReac Type Severity Reaction Status Date / Time ciprofloxacin [From CIPRO] Allergy Intermediate HIVES, Verified 10/10/21 13:06 BREATHING Latex, Natural Rubber Allergy Mild NAUSEA & Verified 10/10/21 13:06 [LATEX, NATURAL RUBBER] VOMITING peanut [PEANUT] Allergy Mild NAUSEA & Verified 10/10/21 13:06 VOMITING nickel Allergy Hives Verified 10/10/21 13:06 shellfish derived Allergy Vomiting Verified 10/10/21 13:06 Plan I have reviewed the history and physical and performed a pertinent physical examination on my patient. No changes have occurred unless specified. Time Spent With Patient Time: Total time managing care of this patient today ____ minutes.
--- NOTE | 2023-04-15 11:22 | OP_ITS ---
DATE OF SERVICE: 04/15/2023 SURGEON: Zhao Mart MD INDICATIONS: Colon cancer screening and diverticulitis. PREOPERATIVE DIAGNOSIS: POSTOPERATIVE DIAGNOSIS: PROCEDURE PERFORMED: Colonoscopy to the terminal ileum with biopsy. ESTIMATED BLOOD LOSS: COMPLICATIONS: ANESTHESIA: Monitored anesthesia care. ASSISTANTS: SPECIMENS: DESCRIPTION OF PROCEDURE: A history and physical was performed. The risks and benefits of the procedure were explained to the patient. Informed consent was obtained. The patient was placed in the left lateral decubitus position. A digital rectal exam was performed and was found to be normal. The Olympus pediatric video colonoscope was introduced into the rectum and advanced to the cecum. The cecum was identified by transillumination, palpation, and identification of ileocecal valve. Examination was performed. The scope was removed. He tolerated the procedure well and was returned to the recovery area in stable condition. FINDINGS: The terminal ileum was examined and appeared normal. The visualized colonic mucosa was within normal limits. No mass lesions were seen. Two polyps measuring less than 5 mm were identified and removed with the biopsy forceps. These were located at 50 cm and 35 cm. There was moderate sigmoid diverticulosis without evidence of diverticulitis. Retroflexed examination showed small internal hemorrhoids. IMPRESSION: Colon polyps. RECOMMENDATION: Follow up the biopsy results. MD EFRAIN Sky/OLESYA / [id number]
--- NOTE | 2023-04-15 12:20 | PC.NURSE ---
Pt brought to d/c [facility], whil there c/o diff breathing and unable to take a deep breath. Brought back to bed 2 found to be 95% on room air. Pt palced on 2lnc and cxr done. Pt given incentive spirometer to open lungs up. VSS
[2023-04-15] MEDS: Ondansetron ODT 4 MG TAB.RAPDIS TRANSLINGU (13:00)
== END 2023-04-15 11:50 | disposition home or self-care (01) ==
PROVIDERS: PCP Internal Medicine; Visit Provider Internal Medicine Gastroenterology
PROC: 0DJD8ZZ Inspection of Lower Intestinal Tract, Via Natural or Artificial Opening Endoscopic (ICD-10-PCS; CPT 45378; principal; 2023-04-15 11:00)
DX: Z12.11 Encounter for screening for malignant neoplasm of colon (principal); Z86.010 Personal history of colon polyps; R59.0 Localized enlarged lymph nodes; Z87.19 Personal history of other diseases of the digestive system; K57.30 Diverticulosis of large intestine without perforation or abscess without bleeding; D12.5 Benign neoplasm of sigmoid colon; Z90.79 Acquired absence of other genital organ(s); K64.8 Other hemorrhoids; G47.33 Obstructive sleep apnea (adult) (pediatric); I10 Essential (primary) hypertension; E11.9 Type 2 diabetes mellitus without complications; F41.8 Other specified anxiety disorders; Z79.84 Long term (current) use of oral hypoglycemic drugs; Z79.899 Other long term (current) drug therapy; Z88.1 Allergy status to other antibiotic agents; Z91.040 Latex allergy status; Z98.890 Other specified postprocedural states; Z87.891 Personal history of nicotine dependence; F12.90 Cannabis use, unspecified, uncomplicated
CPT/HCPCS: 45380; 71045; 82947; 88305; J2704

== ENCOUNTER 2023-04-15 14:03 | Inpatient (IN) | payer OTHER, SELFPAY ==
--- NOTE | ~2023-04-15 | CT_ITS ---
EXAMINATION: CT CHEST WITHOUT CONTRAST CLINICAL INFORMATION: Aspiration pneumonia COMPARISON: Previous chest x-ray from earlier the same day and chest a July 2021 TECHNIQUE: Multidetector volumetric CT imaging of the chest was done. Axial MIP volume rendering provided. Sagittal and coronal reformatted images were obtained. This CT examination was performed using dose optimization techniques as appropriate, variously including the following: *Automated exposure control *Adjustment of mA and/or kV according to patient size (this includes techniques or standardized protocols for targeted exams where dose is matched to indication/reason for exam; i.e. 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 There are scattered areas of segmental atelectasis in the left upper and lower lobes. Right lung is clear MEDIASTINUM: The mediastinum is normal. CORONARY ARTERY CALCIFICATION: None visualized on this study. PLEURA: Trace left pleural effusion. No right pleural effusion. No pleural mass or thickening. AXILLA: No lymphadenopathy. UPPER ABDOMEN: Calcification in the spleen is stable. OSSEOUS STRUCTURES: Unremarkable. CT/CT chest wo IV con IMPRESSION: Left upper lower lobe bronchopneumonia and subsegmental atelectasis.. Fleischner guidelines were followed.
[2023-04-15 14:07] VITALS: BP 111/66; PULSE 114; RESP 23; TEMP 36.7; O2SAT 93; BMI 30.6
--- NOTE | 2023-04-15 14:53 | ED.SOB ---
HPI - SOB/Dyspnea General Chief Complaint: Upper Respiratory Symptoms Stated Complaint: SOB Time Seen by Provider: 04/15/23 14:53 Source: patient Mode of arrival: ambulatory Limitations: no limitations History of Present Illness HPI Narrative: Patient history of obstructive sleep apnea, hypertension, type 2 diabetes, depression ,anxiety status post colonoscopy for diverticulosis while in recovery patient was slightly nauseated became short of breath feel congested and coughing pulse ox dropped to 81% improved with the oxygen to 91, now saturating 93% at room air patient denied any cough or respiratory illness prior to the procedure Related Data Home Medications Medication Instructions Recorded Confirmed ascorbic acid (vitamin C) 500 mg 500 mg PO DAILY 09/13/21 04/15/23 chewable tablet atorvastatin 10 mg tablet 1 tab PO BEDTIME 09/13/21 04/15/23 empagliflozin 25 mg tablet 1 tab PO DAILY 09/13/21 04/15/23 (Jardiance) lisinopril 10 mg tablet 1 tab PO DAILY 09/13/21 04/15/23 multivitamin 1 tab PO DAILY 09/13/21 04/15/23 dulaglutide 3 mg/0.5 mL 3 mg subcut AQUINO 04/15/23 04/15/23 subcutaneous pen injector (Trulicity) Allergies Allergy/AdvReac Type Severity Reaction Status Date / Time ciprofloxacin [From CIPRO] Allergy Intermediate HIVES, Verified 10/10/21 13:06 BREATHING Latex, Natural Rubber Allergy Mild NAUSEA & Verified 10/10/21 13:06 [LATEX, NATURAL RUBBER] VOMITING peanut [PEANUT] Allergy Mild NAUSEA & Verified 10/10/21 13:06 VOMITING nickel Allergy Hives Verified 10/10/21 13:06 shellfish derived Allergy Vomiting Verified 10/10/21 13:06 Review of Systems Review of Systems: Yes all other systems are reviewed and are negative [facility] Past Medical History Medical History (Updated 04/15/23 @ 17:58 by DORY Hernandez) Depression with anxiety Obstructive sleep apnea Hypertension Diabetes Pulmonary hypertension Surgical History History of orchiectomy, unilateral H/O umbilical hernia repair Social History Social History Household Members: Spouse Housing: House Do you presently have visiting nurse or other home services: No Patient Tobacco Use Status: Never used Tobacco Substance Use Type: Marijuana Advance Directives: Yes Advance Directives on File: Yes Advance Directives Date on File: 09/14/21 service: No Current occupational status: employed Physical Exam Vital Signs: Vital Signs: Last Vital Signs Temp 99.1 F 04/15/23 19:54 Pulse 116 H 04/15/23 19:54 Resp 15 04/15/23 15:41 BP 112/69 04/15/23 19:54 Pulse Ox 93 04/15/23 19:54 O2 Del Method Room Air 04/15/23 19:54 BMI result Body Mass Index 30.6 Appearance: Alert. Oriented X3. No acute distress. Eyes: PERRLA, No Nystagmus ENT: Pharynx normal. Oral Mucosa moist Neck: Normal inspection. Neck supple. CVS: Normal heart rate and rhythm. Pulses normal. Respiratory: No respiratory distress. Equal air entry bilateral, bilateral wheezing few crackles at the bases bilateral L>R Abdomen: Soft and nontender. Bowel sounds are present, no mass palpable, Skin: Skin warm and dry. Normal skin color. Normal skin turgor. Extremities: No lower extremity edema. No calf tenderness Neuro: Oriented X 3. Medications Administered Generic Name Dose Route Start Last Admin Trade Name Freq PRN Reason Stop Dose Admin Enoxaparin Sodium 40 mg 04/15/23 18:00 04/15/23 18:17 Enoxaparin Sodium 40 Mg/0.4 Ml Syringe SUBCUT Not Given Q24H MARGIE Ampicillin Sodium/Sulbactam 100 mls @ 200 mls/hr 04/15/23 18:00 04/15/23 18:14 Sodium 3 gm/ Sodium Chloride IV 200 mls/hr Q6H MARGIE Administration Methylprednisolone Sodium Succinate 40 mg 04/15/23 18:00 04/15/23 18:12 Methylprednisolone Sod Succ 40 Mg/Ml Vial IVPUSH 40 mg Q12H MARGIE Administration Discontinued Medications Generic Name Dose Route Start Last Admin Trade Name Freq PRN Reason Stop Dose Admin Albuterol Sulfate 2.5 mg/ 0 mg 04/15/23 15:01 04/15/23 15:40 Albuterol/Ipratropium 3 ml INHALE 04/15/23 15:02 5 dose ONCE ONE Administration Piperacillin Sod/Tazobactam 50 mls @ 100 mls/hr 04/15/23 16:42 04/15/23 17:45 Sod 3.375 gm/ Sodium Chloride IV 04/15/23 17:11 Infused ONCE ONE Infusion Medical Decision Making Medical Decision Making [facility] Narrative: Patient's acute hypoxia post colonoscopy procedure possible aspiration was desaturated now improved but still wheezing saturating 93% at room not clear whether patient whether patient aspirated or has developing pneumonia will get CT scan of the chest plan to admit IV antibiotics CT scan showed left lower lobe bronchopneumonia will admit patient for recent hypoxia with infiltrate? Aspiration Differential Diagnosis Differential Diagnoses: The differential diagnosis associated with the presentation includes As above Admission/Observation Consideration of admission/observation: Escalation of care including admission/observation considered Consult Healthcare Provider Management of the patient was discussed with: Hospitalist Lab Data [facility] Lab Attestation statement: I reviewed the patient's lab results. 04/15/23 15:34 04/15/23 15:34 Labs: Lab Results 04/15/23 Range/Units 15:34 WBC 17.8 H (4.8-10.8) X10*3/uL RBC 5.82 H (4.60-5.80) X10*6/uL Hgb 16.5 (14.0-18.0) g/dl Hct 50.4 (42.0-52.0) % MCV 86.6 (80.0-98.0) fL MCH 28.4 (27.0-33.0) pg MCHC 32.7 (31.0-36.0) g/dl RDW 12.3 (11.0-16.0) % Plt Count 295 (160-400) X10*3/uL MPV 10.4 (9.4-12.4) fL Immature Gran % (Auto) 0.5 H (0.0-0.4) % Neut % (Auto) 92.6 H (45-73) % Lymph % (Auto) 3.0 L (20-40) % Emmet % (Auto) 3.6 (2-11) % Eos % (Auto) 0.0 (0-4) % Baso % (Auto) 0.3 (0-2) % Lymph # (Auto) 0.5 L (1.2-4.9) X10*3/uL Emmet # (Auto) 0.6 (0.1-1.2) X10*3/uL Eos # (Auto) 0.0 (0.0-0.4) X10*3/uL Baso # (Auto) 0.1 (0.0-0.2) X10*3/uL Abs Immat Gran (auto) 0.08 H (0.00-0.03) X10*3/uL Absolute Neuts (auto) 16.4 H (2.0-8.3) x10*3/uL Absolute Nucleated RBC 0.000 (0.0-0.012) X10*3/uL Nucleated RBC % (auto) 0.0 (0.0-0.2) /100WBC Smear Tech's Comments VERIFIED Sodium 138 (135-145) mmol/L Potassium 3.8 (3.3-5.1) mmol/L Chloride 102 (96-108) mmol/L Carbon Dioxide 24 (22-29) mmol/L Anion Gap 16 (12-20) BUN 15 (9-16) mg/dL Creatinine 0.86 (0.5-1.4) mg/dL Estim Creat Clear Calc 106.2 Estimated GFR > 60 Random Glucose 124 H (60-115) mg/dL Lactic Acid 1.8 (0.5-2.0) mmol/L Calcium 9.2 D (8.4-10.2) mg/dL Total Bilirubin 0.8 (0.0-1.0) mg/dL AST 19 (5-37) U/L ALT 42 H (0-40) U/L Alkaline Phosphatase 74 (39-117) U/L B-Natriuretic Peptide < 10 (<100) pg/mL Total Protein 7.1 (6.5-8.0) g/dL Albumin 4.2 (3.5-5.0) g/dL Influenza Type A (PCR) NEGATIVE (Negative) Influenza Type B (PCR) NEGATIVE (Negative) RSV RNA Qual (PCR) NEGATIVE (Negative) SARS-CoV-2 RNA (RT-PCR) NEGATIVE (Negative) Independent Interpretation I performed an independent interpretation of an: Plain X-Ray and CT Scan Radiology Impression Discussion of test interpretation with radiology: I have reviewed the radiologist's reading. Radiologist Impression: XR/XR chest 1V IMPRESSION: 1. Streaky opacities of the left mid and lower lung field nonspecific though may reflect atelectasis versus sequela of aspiration. 2. Bilateral low lung volumes. [id number] [place] [address] CT Scan Report Signed Patient: Krunal Hall MR#: [id number] : 1980 Acct:[id number] Age/Sex: 42 / M ADM Date: 04/15/23 Loc: [facility] [facility] Attending [address]: Renita CONNORS Ordering Physician: Taiwo Walters MD Date of Service: 04/15/23 Procedure(s): CT chest wo IV con Accession Number(s): [id number] cc: GEORGE PALM MD; Taiwo Walters MD~ EXAMINATION: CT CHEST WITHOUT CONTRAST CLINICAL INFORMATION: Aspiration pneumonia COMPARISON: Previous chest x-ray from earlier the same day and chest a July 2021 TECHNIQUE: Multidetector volumetric CT imaging of the chest was done. Axial MIP volume rendering provided. Sagittal and coronal reformatted images were obtained. This CT examination was performed using dose optimization techniques as appropriate, variously including the following: *Automated exposure control *Adjustment of mA and/or kV according to patient size (this includes techniques or standardized protocols for targeted exams where dose is matched to indication/reason for exam; i.e. 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 There are scattered areas of segmental atelectasis in the left upper and lower lobes. Right lung is clear MEDIASTINUM: The mediastinum is normal. CORONARY ARTERY CALCIFICATION: None visualized on this study. PLEURA: Trace left pleural effusion. No right pleural effusion. No pleural mass or thickening. AXILLA: No lymphadenopathy. UPPER ABDOMEN: Calcification in the spleen is stable. OSSEOUS STRUCTURES: Unremarkable. CT/CT chest wo IV con IMPRESSION: Left upper lower lobe bronchopneumonia and subsegmental atelectasis.. Fleischner guidelines were followed. Discharge Plan Discharge Clinical Impression: Bronchitis, Pneumonia Patient Disposition: Admitted As Inpatient
[2023-04-15] MEDS: Albuterol Sulfate 2.5 MG, Albuterol/Iprat 2.5/0.5MG 3 ML 3 ML INHALE (15:40)
[2023-04-15 15:41] VITALS: PULSE 117; RESP 15; O2SAT 96
[2023-04-15 15:44] LABS: Basophils Absolute Auto 0.1 X10*3/uL (0.0-0.2); Basophils Percent Auto 0.3 % (0-2); Hematocrit 50.4 % (42.0-52.0); Hemoglobin 16.5 g/dl (14.0-18.0); Imm Gran Abs Auto 0.08 X10*3/uL (0.00-0.03); Imm Gran Pct Auto 0.5 % (0.0-0.4); Lymphocytes Absolute Auto 0.5 X10*3/uL (1.2-4.9); MANUAL DIFF FLAG SCAN; Mean Corpuscular HGB Conc 32.7 g/dl (31.0-36.0); Mean Corpuscular Hemoglobin 28.4 pg (27.0-33.0); Mean Corpuscular Volume 86.6 fL (80.0-98.0); Mean Platelet Volume 10.4 fL (9.4-12.4); Monocytes Absolute Auto 0.6 X10*3/uL (0.1-1.2); Monocytes Percent Auto 3.6 % (2-11); Neutrophils Absolute Auto 16.4 x10*3/uL (2.0-8.3); Neutrophils Percent Auto 92.6 % (45-73); Platelet Count 295 X10*3/uL (160-400); Red Blood Count 5.82 X10*6/uL (4.60-5.80); Red Cell Distribution Width 12.3 % (11.0-16.0); SCAN SMEAR FLAG 1; White Blood Count 17.8 X10*3/uL (4.8-10.8)
[2023-04-15 15:53] LABS: Lactic Acid 1.8 mmol/L (0.5-2.0)
[2023-04-15 15:58] LABS: Alanine Aminotransferase 42 U/L (0-40); Albumin Level 4.2 g/dL (3.5-5.0); Alkaline Phosphatase 74 U/L (39-117); Anion Gap 16 (12-20); Aspartate Amino Transferase 19 U/L (5-37); Bilirubin Total 0.8 mg/dL (0.0-1.0); Blood Urea Nitrogen 15 mg/dL (9-16); Calcium 9.2 mg/dL (8.4-10.2); Carbon Dioxide 24 mmol/L (22-29); Chloride 102 mmol/L (96-108); Creatinine Clr Calc Pharmacy 106.2; Estimated Glomerular Filt Rate > 60; Glucose Random 124 mg/dL (60-115); Potassium 3.8 mmol/L (3.3-5.1); Sodium 138 mmol/L (135-145); Total Protein 7.1 g/dL (6.5-8.0)
[2023-04-15 16:02] LABS: B Type Natriuretic Peptide < 10 pg/mL (<100)
[2023-04-15 16:09] LABS: SLIDE REVIEW VERIFIED
[2023-04-15 16:44] LABS: Influenza A PCR NEGATIVE (Negative); Influenza B PCR NEGATIVE (Negative); Resp Syncy Virus RNA Qual PCR NEGATIVE (Negative); SARS COV2 PCR INHOUSE NEGATIVE (Negative)
[2023-04-15] MEDS: Piperacillin Sodium/Tazobactam 3.375 GM in 0.9 % Sodium Chloride 50 ML IV (17:02)
--- NOTE | 2023-04-15 17:37 | PM.IMHP ---
History of Present Illness Date of Service: 04/15/23 Attending physician on admission: Galilea Corrales Chief Complaint: Shortness of breath, cough, fatigue 42-year-old male with history of noninsulin dependent type 2 diabetes, pulmonary hypertension, SHARON noncompliant with BiPAP, hypertension, and mood disorder presents to the ED earlier today s/p colonoscopy for diverticulosis. While in recovery, patient was slightly nauseated and became short of breath and felt congested with nonproductive cough. His oxygen saturation was noted to drop to 81% and improved with oxygen to 91%, currently saturating 91-93% on room air. Chest x-ray taken while in recovery shows streaky opacities of the left mid and lower lung coronel nonspecific though possibly reflective of atelectasis versus sequela of aspiration. He denies any prior in illness. He states he is still feeling short of breath and fatigued as well as has left-sided pleuritic chest pain and feels like he is wheezing. No known history of chronic lung disease. He denies any fevers, chills, abdominal pain, persistent nausea, vomiting, diarrhea, lightheadedness, palpitations, or retrosternal chest pressure. On arrival to the ED, patient noted to be tachycardic with heart rates ranging 101 to 120 he is and intermittently tachypneic to 23. No ongoing hypoxia. No hypotension or fevers. There is a leukocytosis of 17.8. Renal function and electrolyte levels are normal. Glucose 124. Negative for COVID-19, RSV, influenza. CT chest IV contrast pending. In the ED, given 3.375 g Zosyn and DuoNeb. Review of Systems Review of Systems: General: No fevers, malaise, unintentional weight loss HEENT: No blurred vision, diplopia. No sore throat, nasal congestion, rhinorrhea, sinus pain, ear pain Cardiovascular: No chest pressue, palpitations, or leg edema Respiratory: +shortness of breath, +wheezing, +cough GI: No abdominal pain, nausea, vomiting, diarrhea, constipation, melena, hematochezia : No dysuria, hematuria, increased urinary frequency, decreased urinary output MSK: No myalgia, back pain. +pleuritic chest pain Neuro: No headaches, weakness, paresthesias Skin: No rashes or lesions [facility] Medical History (Updated 04/15/23 @ 17:58 by DORY Hernandez) Depression with anxiety Obstructive sleep apnea Hypertension Diabetes Pulmonary hypertension Surgical History History of orchiectomy, unilateral H/O umbilical hernia repair Social History Household Members: Spouse Housing: House Do you presently have visiting nurse or other home services: No Alcohol intake: never Patient Tobacco Use Status: Never used Tobacco Smoked in Last 30 Days: No Use of substances other than those prescribed or required for medical reasons: No Substance Use Type: Marijuana Advance Directives: Yes Advance Directives on File: Yes Advance Directives Date on File: 04/16/23 Nutrition Risks: No Nutritional Risk service: No Current occupational status: employed Meds Allergies Allergy/AdvReac Type Severity Reaction Status Date / Time ciprofloxacin [From CIPRO] Allergy Intermediate HIVES, Verified 10/10/21 13:06 BREATHING Latex, Natural Rubber Allergy Mild NAUSEA & Verified 10/10/21 13:06 [LATEX, NATURAL RUBBER] VOMITING peanut [PEANUT] Allergy Mild NAUSEA & Verified 10/10/21 13:06 VOMITING nickel Allergy Hives Verified 10/10/21 13:06 shellfish derived Allergy Vomiting Verified 10/10/21 13:06 Home Medications Medication Instructions Recorded Confirmed Last Taken Type ascorbic acid (vitamin C) 500 mg 500 mg PO DAILY 09/13/21 04/15/23 09/13/21 History chewable tablet atorvastatin 10 mg tablet 1 tab PO BEDTIME 09/13/21 04/15/23 09/12/21 History empagliflozin 25 mg tablet 1 tab PO DAILY 09/13/21 04/15/23 09/13/21 History (Jardiance) lisinopril 10 mg tablet 1 tab PO DAILY 09/13/21 04/15/23 04/15/23 08:00 History multivitamin 1 tab PO DAILY 09/13/21 04/15/23 09/13/21 History dulaglutide 3 mg/0.5 mL 3 mg subcut AQUINO 04/15/23 04/15/23 Unknown History subcutaneous pen injector (Trulicity) Physical Exam Vital Signs and Narrative: Vital Signs: Last Vital Signs Temp 98.0 F 04/15/23 14:07 Pulse 117 H 04/15/23 15:41 Resp 15 04/15/23 15:41 BP 111/66 04/15/23 14:07 Pulse Ox 93 04/15/23 14:07 O2 Del Method Room Air 04/15/23 14:07 BMI result Body Mass Index 30.6 Constitutional - Awake and Alert, No apparent distress Eyes - PERRLA, EOMI Cardiovascular - S1S2, RRR, No edema Respiratory - Normal lung expansion, Normal respiratory effort, No respiratory distress, rhonchi left upper lobe, expiratory wheezing bilaterally Gastrointestinal - NT / ND; +BS; No rebound or guarding Extremities - no calf tenderness bilaterally, no swelling Skin - Warm/Dry Neurological - Alert & oriented x3 Psychological - Appropriate affect Results Labs 04/16/23 05:22 04/16/23 05:22 Labs: Laboratory Results - last 24 hr 04/15/23 15:34 MCV 86.6 MCH 28.4 MCHC 32.7 RDW 12.3 Plt Count 295 MPV 10.4 Immature Gran % (Auto) 0.5 H Neut % (Auto) 92.6 H Lymph % (Auto) 3.0 L Bucks % (Auto) 3.6 Eos % (Auto) 0.0 Baso % (Auto) 0.3 Lymph # (Auto) 0.5 L [place]ucks # (Auto) 0.6 Eos # (Auto) 0.0 Baso # (Auto) 0.1 Abs Immat Gran (auto) 0.08 H Absolute Neuts (auto) 16.4 H Absolute Nucleated RBC 0.000 Nucleated RBC % (auto) 0.0 Smear Tech's Comments VERIFIED Anion Gap 16 Estim Creat Clear Calc 106.2 Estimated GFR > 60 Random Glucose 124 H Lactic Acid 1.8 Calcium 9.2 D Total Bilirubin 0.8 AST 19 ALT 42 H Alkaline Phosphatase 74 B-Natriuretic Peptide < 10 Total Protein 7.1 Albumin 4.2 Influenza Type A (PCR) NEGATIVE Influenza Type B (PCR) NEGATIVE RSV RNA Qual (PCR) NEGATIVE SARS-CoV-2 RNA (RT-PCR) NEGATIVE Assessment and Plan (1) Aspiration pneumonia: Status: Acute (2) Pneumonitis due to acquired toxoplasmosis: Status: Acute Plan 42-year-old male with history of noninsulin dependent type 2 diabetes, pulmonary hypertension, SHARON noncompliant with BiPAP, hypertension, and mood disorder admitted for pneumonitis with suspected evolving aspiration pneumonia and sepsis. #Acute pneumonitis with suspected evolving aspiration pneumonia and sepsis -leukocytosis 17.8, tachycardic, tachypneic. Lactic acid normal, no end-organ damage, or hypertension -CXR earlier with nonspecific findings possibly reflective of atelectasis versus sequela of aspiration. Chest CT pending -IV methylprednisolone 40 mg b.i.d. -IV Unasyn 3 g q.6h (initiated 04/15) -DuoNebs q.4h p.r.n. -symptomatic management -follow CBC, cultures # acute hypoxemic respiratory failure -secondary to above, resolved on admission # [id number]-[id number] type 2 diabetes- controlled -POC glucose -diabetic diet -Humalog on sliding scale -can continue Jardiance # hypertension -blood pressure soft -hold lisinopril for now, resume as appropriate # SHARON -noncompliant with BiPAP # unspecified mood disorder -continue home meds DVT prophylaxis-Lovenox Full code Patient requires inpatient stay at least 2 midnights for management of acute pneumonitis and evolving aspiration pneumonia with sepsis and acute hypoxemic respiratory failure requiring IV steroids, IV antibiotics, and close monitoring of vital signs to prevent cardiopulmonary decompensation Quality Stroke Does the patient have a stroke diagnosis?: No VTE Prior VTE?: No VTE Risk Level:: Medical - moderate - high VTE Device Contraindication: Treatment Not Indicated VTE Drug Contraindication: N/A - Med Ordered
--- NOTE | 2023-04-15 17:55 | PHA.MEDREC ---
Pharmacy Consult ? Medication Reconciliation Pharmacy has completed the medication reconciliation. Patient reported all medications, patient doesn't have recently fills for his medications but reported all meds. Leonor Vogel, NadegeD
[2023-04-15] MEDS: methylPREDNISolone Sod Succ 40 MG/ML VIAL IVPUSH (18:12)
[2023-04-15] MEDS: Ampicillin Sodium/Sulbactam Na 3 GM in 0.9 % Sodium Chloride 100 ML IV (18:14)
[2023-04-15 19:54] VITALS: BP 112/69; PULSE 116; TEMP 37.3; O2SAT 93
[2023-04-15 21:22] LABS: Glucose, Whole Blood 287 mg/dL (60-115)
--- NOTE | 2023-04-15 21:34 | PC.NURSE ---
Pt refused insulin coverage, states I don't take insulin at home, I don't feel comfortable taking it . Provider notified.
[2023-04-15 22:00] VITALS: O2SAT 92
[2023-04-16] VITALS (7 sets, daily range): BP systolic 99–129; BP diastolic 63–84; PULSE 83–100; RESP 16–18; TEMP 36.6; O2SAT 92–96
[2023-04-16] MEDS: 0.9 % Sodium Chloride Flush 3 ML SYRINGE IVFLUSH (01:12)
[2023-04-16] MEDS: Ampicillin Sodium/Sulbactam Na 3 GM in 0.9 % Sodium Chloride 100 ML IV ×2 (01:12→06:29)
[2023-04-16] MEDS: Atorvastatin Calcium 10 MG TABLET PO (01:19)
[2023-04-16 05:52] LABS: Basophils Percent Auto 0.1 % (0-2); Hematocrit 45.7 % (42.0-52.0); Hemoglobin 15.4 g/dl (14.0-18.0); Imm Gran Abs Auto 0.07 X10*3/uL (0.00-0.03); Imm Gran Pct Auto 0.5 % (0.0-0.4); Lymphocytes Absolute Auto 0.9 X10*3/uL (1.2-4.9); Lymphocytes Percent Auto 5.9 % (20-40); MANUAL DIFF FLAG SCAN; Mean Corpuscular HGB Conc 33.7 g/dl (31.0-36.0); Mean Corpuscular Hemoglobin 29.1 pg (27.0-33.0); Mean Corpuscular Volume 86.4 fL (80.0-98.0); Mean Platelet Volume 10.8 fL (9.4-12.4); Monocytes Absolute Auto 0.4 X10*3/uL (0.1-1.2); Monocytes Percent Auto 2.8 % (2-11); Neutrophils Absolute Auto 13.1 x10*3/uL (2.0-8.3); Neutrophils Percent Auto 90.7 % (45-73); Platelet Count 267 X10*3/uL (160-400); Red Blood Count 5.29 X10*6/uL (4.60-5.80); Red Cell Distribution Width 12.2 % (11.0-16.0); SCAN SMEAR FLAG 1; White Blood Count 14.5 X10*3/uL (4.8-10.8)
[2023-04-16 06:06] LABS: Anion Gap 11 (12-20); Blood Urea Nitrogen 18 mg/dL (9-16); Carbon Dioxide 23 mmol/L (22-29); Chloride 108 mmol/L (96-108); Creatinine Clr Calc Pharmacy 94.2; Estimated Glomerular Filt Rate > 60; Glucose Random 171 mg/dL (60-115); Potassium 4.3 mmol/L (3.3-5.1); Sodium 138 mmol/L (135-145)
[2023-04-16 06:12] LABS: SLIDE REVIEW VERIFIED
[2023-04-16] MEDS: methylPREDNISolone Sod Succ 40 MG/ML VIAL IVPUSH (06:24)
--- NOTE | 2023-04-16 09:09 | MHC.CM.PN ---
PT REPORTS HE LIVES WITH HIS AND IS INDEPENDENT WITH CARE HE USES [employer] FOR DME HE HAS NO SERVICES HE COMPLETED A NEW HCP TODAY NAMING HIS BROTHER, KIM, AND , CASTRO LEE, HIS AGENTS HE ASKS THAT INFORMATION BE GIVEN TO ANYONE THAT CALLS LOOKING FOR UPDATES PCP: GEORGE PALM DCP: HOME NO SERVICES TO TRANSPORT
[2023-04-16] MEDS: lisinopriL 10 MG TABLET PO (09:46)
[2023-04-16] MEDS: Empagliflozin 25 MG TABLET PO (09:47)
[2023-04-16] MEDS: Ascorbic Acid 500 MG TABLET PO (09:47)
[2023-04-16] MEDS: Multivitamin TABLET 1 TAB PO (09:48)
--- NOTE | 2023-04-16 11:56 | PC.NURSE ---
report in computer- rn notified in tiger text- awaiting bed to be cleaned- messaged [facility] group to ask to be alerted when bed is ready. no distress. breathing/talking well. voided in urinal yellow clear urine. offered po intake. messaged earlier that pt declined am insulin for prev rn
--- NOTE | 2023-04-16 12:16 | MHC.EDTECH ---
T/w ambulated with Pt. O2 remained 94-95% and c/o some minor lightheadedness. CHHAYA Melendez aware
--- NOTE | 2023-04-16 12:23 | PC.NURSE ---
md notified spo2 95% walking- pt not being admitted per md at this time upstairs
--- NOTE | 2023-04-16 12:50 | PM.DS ---
DS: Providers Provider Date of Service: 04/16/23 Date of admission: 04/15/23 17:34 Primary care physician: Anuja Odonnell MD DS: Diagnosis Discharge Diagnosis (1) Aspiration pneumonia: Status: Acute (2) Pneumonitis: Status: Acute (3) Sepsis: Status: Acute (4) Hypoxia: Status: Acute DS: Summary Hospital Course Hospital Course: Admission note HPI 42-year-old male with history of noninsulin dependent type 2 diabetes, pulmonary hypertension, SHARON noncompliant with BiPAP, hypertension, and mood disorder presents to the ED earlier today s/p colonoscopy for diverticulosis. While in recovery, patient was slightly nauseated and became short of breath and felt congested with nonproductive cough. His oxygen saturation was noted to drop to 81% and improved with oxygen to 91%, currently saturating 91-93% on room air. Chest x-ray taken while in recovery shows streaky opacities of the left mid and lower lung coronel nonspecific though possibly reflective of atelectasis versus sequela of aspiration. He denies any prior in illness. He states he is still feeling short of breath and fatigued as well as has left-sided pleuritic chest pain and feels like he is wheezing. No known history of chronic lung disease. He denies any fevers, chills, abdominal pain, persistent nausea, vomiting, diarrhea, lightheadedness, palpitations, or retrosternal chest pressure. On arrival to the ED, patient noted to be tachycardic with heart rates ranging 101 to 120 he is and intermittently tachypneic to 23. No ongoing hypoxia. No hypotension or fevers. There is a leukocytosis of 17.8. Renal function and electrolyte levels are normal. Glucose 124. Negative for COVID-19, RSV, influenza. CT chest IV contrast pending. In the ED, given 3.375 g Zosyn and DuoNeb. Hospital course The patient was admitted for treatment of acute hypoxia secondary to acute pneumonitis and aspiration pneumonia complicated with sepsis. Chest CT showed left ipper lobe pneumonia and atelactasis. Treated with IV methylprednisolone, IV Unasyn ,DuoNebs and O2 supplement with good response as he made quicker than anticipated 2 midnight admission time and was able to ambulate on room air maintainin O2 sat in 90s with no reported fever or dyspnea. He preferred to go back home today and promised to come back to hospital if he develope any fever or dyspnea. Will be discharged on Augmentin and Prednisone for 5 more days. Take Prednisone and Augmentin as prescribed Mucinex for secretions come back to the hospital for any worsening shortness of breath or fever. Time Attestation Discharge coordination time: Greater than 30 minutes Quality: Safe Use of Opioids Does Pt have an Active Cancer Diagnosis on the Problem List?: No Quality: Stroke Does the patient have a stroke diagnosis?: No Physical Exam Vital Signs: Vital Signs: Last Vital Signs Temp 99.1 F 04/15/23 19:54 Pulse 88 04/16/23 12:22 Resp 16 04/16/23 12:22 BP 128/78 04/16/23 11:13 Pulse Ox 95 04/16/23 12:22 O2 Del Method Room Air 04/16/23 12:22 BMI result Body Mass Index 30.6 Const: Other: Constitutional : Awake, interactive, not in distress Neck : Normal inspection, Supple Cardiovascular : RRR, no JVP, no lower extremity edema Respiratory : good bilateral air entry, left sided fine ronchi with no wheezes Gastrointestinal: soft, lax, Normal bowel sounds, Non tender Skin : Warm, Dry Neurological : Alert & oriented x3, No focal deficit DS: Data Data Completed and Pending Labs on day of discharge: Laboratory Results - last 24 hr 04/15/23 04/15/23 04/16/23 15:34 21:19 05:22 WBC 17.8 H 14.5 H RBC 5.82 H 5.29 Hgb 16.5 15.4 Hct 50.4 45.7 MCV 86.6 86.4 MCH 28.4 29.1 MCHC 32.7 33.7 RDW 12.3 12.2 Plt Count 295 267 MPV 10.4 10.8 Immature Gran % (Auto) 0.5 H 0.5 H Neut % (Auto) 92.6 H 90.7 H Lymph % (Auto) 3.0 L 5.9 L [place] % (Auto) 3.6 2.8 Eos % (Auto) 0.0 0.0 Baso % (Auto) 0.3 0.1 Lymph # (Auto) 0.5 L 0.9 L [place] # (Auto) 0.6 0.4 Eos # (Auto) 0.0 0.0 Baso # (Auto) 0.1 0.0 Abs Immat Gran (auto) 0.08 H 0.07 H Absolute Neuts (auto) 16.4 H 13.1 H Absolute Nucleated RBC 0.000 0.000 Nucleated RBC % (auto) 0.0 0.0 Smear Tech's Comments VERIFIED VERIFIED Sodium 138 138 Potassium 3.8 4.3 Chloride 102 108 Carbon Dioxide 24 23 Anion Gap 16 11 L BUN 15 18 H Creatinine 0.86 0.97 Estim Creat Clear Calc 106.2 94.2 Estimated GFR > 60 > 60 POC Glucose 287 H Random Glucose 124 H 171 H Lactic Acid 1.8 Calcium 9.2 D 9.0 Total Bilirubin 0.8 AST 19 ALT 42 H Alkaline Phosphatase 74 B-Natriuretic Peptide < 10 Total Protein 7.1 Albumin 4.2 Influenza Type A (PCR) NEGATIVE Influenza Type B (PCR) NEGATIVE RSV RNA Qual (PCR) NEGATIVE SARS-CoV-2 RNA (RT-PCR) NEGATIVE Imaging CT scan - chest: Radiologist's impression: ITS Impressions Chest CT 04/15/23 17:12 IMPRESSION: Left upper lower lobe bronchopneumonia and subsegmental atelectasis.. Fleischner guidelines were followed. Discharge Plan Discharge Anticipated Discharge Date/Time: 04/16/23 12:45 Patient Disposition: Home, Self-Care Discharge Diagnosis: Aspiration pneumonia Referrals: Anuja Odonnell MD [Primary Care Provider] - 1 Week Discharge Medications: New amoxicillin-pot clavulanate 875-125 mg tablet 1 tab PO BID Qty: 10 0RF prednisone 20 mg tablet 40 mg PO DAILY Qty: 10 0RF guaifenesin [Mucinex] 600 mg tablet extended release 12hr 600 mg PO BID Qty: 14 0RF Continued atorvastatin 10 mg tablet 1 tab PO BEDTIME lisinopril 10 mg tablet 1 tab PO DAILY Jardiance 25 mg tablet 1 tab PO DAILY multivitamin Tablet 1 tab PO DAILY ascorbic acid (vitamin C) 500 mg Tablet,Chewable 500 mg PO DAILY Trulicity 3 mg/0.5 mL pen injector 3 mg subcut AQUINO Discharge Orders: Discharge Order (Routine); Ordered 04/16/23 Ordered By: Galilea Corrales Diet: Advance to usual diet Activity on Discharge: As tolerated Stand Alone Forms: Patient Portal Discharge page Care Plan Goals: Read below Health Concerns: Read below Plan of Treatment: Read below Assessment: You were admitted to the hospital for treatment of difficulties breathing and coughing after colonoscopy procedure. Chest images showing evidence of aspiration and possible pneumonia treated with IV antibiotics and steroids with good response. Take Prednisone and Augmentin as prescribed Mucinex for secretions come back to the hospital for any worsening shortness of breath or fever.
--- NOTE | 2023-04-16 13:39 | PC.NURSE ---
dc. piv out. no distress. walked well. +o2 on RA.
--- NOTE | 2023-04-16 13:42 | MHC.CM.PN ---
pt dcd home no servies
== END 2023-04-16 16:53 | disposition home or self-care (01) | DRG 871 ==
LOC: HO.ED 17:22 → HO.EDOVER 17:43 → HO.S3 04-16 11:18 → HO.EDOVER 04-16 12:42
PROVIDERS: Admitting Provider Physician Assistant; Emergency Provider Internal Medicine; PCP Internal Medicine; Visit Provider Student in an Organized Health Care Education/Training Program
DX: A41.9 Sepsis, unspecified organism (principal); J69.0 Pneumonitis due to inhalation of food and vomit; J96.01 Acute respiratory failure with hypoxia; J98.11 Atelectasis; E11.9 Type 2 diabetes mellitus without complications; I27.20 Pulmonary hypertension, unspecified; G47.33 Obstructive sleep apnea (adult) (pediatric); Z91.199 Patient's noncompliance with other medical treatment and regimen due to unspecified reason; Z20.822 Contact with and (suspected) exposure to COVID-19; Z91.040 Latex allergy status; Z79.84 Long term (current) use of oral hypoglycemic drugs; Z79.85 Long-term (current) use of injectable non-insulin antidiabetic drugs; Z79.899 Other long term (current) drug therapy
CPT/HCPCS: 0241U; 36415; 71250; 80048; 80053; 82947; 83605; 83880; 85025; 87040; 94640; 99285; J0295; J2543; J2920

== ENCOUNTER → 2023-04-15 17:34 | Outpatient (BNV) | payer OTHER, SELFPAY | PROVIDERS: Admitting Provider Physician Assistant; Emergency Provider Internal Medicine; PCP Internal Medicine; Visit Provider Physician Assistant | DX: J69.0 Pneumonitis due to inhalation of food and vomit (principal); J96.01 Acute respiratory failure with hypoxia; B58 Toxoplasmosis; J98.4 Other disorders of lung; A41.9 Sepsis, unspecified organism | CPT/HCPCS: 99223; 99239 ==